=== PATIENT | female | born 1995 | race Two or more races ===

== ENCOUNTER 2016-07-07 06:07 | Emergency (ER) | payer MEDICAID ==
[2016-07-07 06:14] VITALS: RESP 16
[2016-07-07] MEDS ORDERED: DEXAMETHASONE VARIABLE DOSE IVP/PO ONE (06:30)
[2016-07-07] MEDS ORDERED: DEXAMETHASONE 10 MG/ML VIAL ONE (06:31)
[2016-07-07] MEDS ORDERED: ONDANSETRON 4 MG/2 ML VIAL ONE (06:42)
[2016-07-07] MEDS ORDERED: ONDANSETRON 4 MG/2 ML VIAL IVP ONE (06:46)
[2016-07-07] MEDS ORDERED: NS 1,000 ML IV ONE (06:46)
--- NOTE | 2016-07-07 07:08 | EDPHY ---
HPI/HX/ROS/PE/MDM Narrative: Chief complaint: Sore throat HPI: 20-year-old female presenting with several days of worsening sore throat and swelling of the glands in her neck. She does have a history of the same in the past but not for many years when she has strep. Has had some subjective fevers and chills. Has pain with swallowing but is able swallow. No nausea or vomiting. No skin rash. ROS: 10 point Review of Systems is negative except as noted in the HPI. Physical exam: Gen: Awake, Alert, No Distress HEENT: Nose: no rhinorrhea Eyes: PERRLA, EOMI Mouth: Moist mucosa diffuse pharyngeal exudate with erythema. Uvula is midline. There is no significant asymmetrical peritonsillar swelling suggesting abscess Neck: Supple, no JVD, moderate cervical lymphadenopathy Chest: nontender, lungs clear to auscultation Heart: S1, S2 normal, no murmur Abd: Soft, non-tender, no guarding Back: no CVA tenderness, no midline tenderness Ext: no edema, non-tender Skin: no rash Neuro: CN II-XII intact, Sensation grossly intact, Strength 5/5 in bilateral upper and lower extremities - Data Points Laboratory Results: 07/07/16 07/07/16 Unknown 06:30 Monoscreen Pending Group A Strep Screen NEGATIVE (NEGATIVE) Group A Strep DNA Pending Medications Given: Discontinued Medications Dexamethasone Sodium Phosphate (Decadron) 10 mg IVP/PO ONCE ONE Stop: 07/07/16 06:31 Last Admin: 07/07/16 06:46 Dose: 10 mg Sodium Chloride (Ns) 1,000 mls @ 0 mls/hr IV ONCE ONE PRN Reason: Wide Open Stop: 07/07/16 06:47 Last Admin: 07/07/16 06:46 Dose: 1,000 mls Ondansetron HCl (Zofran) 4 mg IVP EDNOW ONE Stop: 07/07/16 06:47 Last Admin: 07/07/16 06:47 Dose: 4 mg General Time Seen by Provider: 07/07/16 06:26 Initial Vital Signs: Initial Vital Signs Temperature (C) 36.9 C 07/07/16 06:11 Heart Rate 101 H 07/07/16 06:11 Respiratory Rate 16 07/07/16 06:11 Blood Pressure 120/78 07/07/16 06:11 O2 Sat (%) 98 07/07/16 06:11 O2 Delivery Mode Room Air Allergies/Adverse Reactions: No Known Allergies Allergy (Verified 07/07/16 06:14) Home Medications: Medication Instructions Recorded Hydrocodone/Acetaminophen 1 - 2 each PO Q4-6PRN PRN #10 07/07/16 [Hydrocodon-Acetaminophen 5-325] tablet Departure - Departure Disposition: Home, Routine, Self-Care Clinical Impression: Acute pharyngitis Condition: Good Instructions: Pharyngitis (ED) Additional Instructions: Follow up with primary care provider in 2-3 days for recheck. Return to the emergency department for worsening swelling, difficulty swallowing , fevers, chills, or any concerns. Follow up with [facility] in [place]. You may take [place] as needed for pain. Alternate with ibuprofen. Referrals: [facility] [Outside] - As per Instructions IN STATE,. [Primary Care Provider] - As per Instructions [facility] [place] [Other] - As per Instructions Prescriptions: Hydrocodone/Acetaminophen [Hydrocodon-Acetaminophen 5-325] 1 - 2 each PO Q4- 6PRN PRN #10 tablet PRN Reason: Pain, Severe
[2016-07-07 07:23] VITALS: BP 112/64; PULSE 93; TEMP 98.2; O2SAT 96
== END 2016-07-07 07:22 | disposition home or self-care (01) ==
DX: J02.9 Acute pharyngitis, unspecified (principal)
CPT/HCPCS: 96374; J2405

== ENCOUNTER 2017-05-19 08:55 | Observation (INO) | payer MEDICAID ==
[2017-05-19] MEDS ORDERED: NS 2,000 ML IV ONE (09:16)
--- NOTE | 2017-05-19 09:19 | EDPHY ---
H & P Stated Complaint: st/fever centeno x 3 days - Personal History LMP (Females 10-55): 15-21 Days Ago Current Tetanus/Diphtheria Vaccine: No - Medical/Surgical History Hx Asthma: No Hx Chronic Respiratory Disease: No Hx Diabetes: No Hx Cardiac Disease: No Hx Renal Disease: No Hx Cirrhosis: No Hx Alcoholism: No Hx HIV/AIDS: No Hx Splenectomy or Spleen Trauma: No Other PMH: DENIES - Social History Smoking Status: Never smoked Time Seen by Provider: 05/19/17 09:12 HPI/ROS: CHIEF COMPLAINT: flu-like symptoms, vomiting HISTORY OF PRESENT ILLNESS: 21-year-old immunocompetent female with no influenza vaccination this season complaining of 3 days of sore throat, nonprogressive non thunderclap holocephalic headache, nonproductive cough with development of intractable vomiting since last evening. Bowel movements normal. Urinary habits normal. No abdominal pain. No chest pain. No nuchal rigidity. No melena or hematochezia. No known sick contacts. No one sick at home. PRIMARY CARE PROVIDER: REVIEW OF SYSTEMS: A ten point review of systems was performed and is negative with the exception of the items mentioned in the HPI PAST MEDICAL & SURGICAL HISTORY: No influenza vaccination this season SOCIAL HISTORY: nonsmoker PHYSICAL EXAM (Prior to examination, patient consented to physical exam, hands were washed and my usual and customary physical exam procedures followed) 1) GENERAL: Well-developed, well-nourished, alert and oriented. Appears to be in no acute distress. Appears nontoxic 2) HEAD: Normocephalic, atraumatic 3) HEENT: Pupils equal, round, reactive to light bilaterally. Sclera anicteric. Nasopharynx, oropharynx, clear, no lesions. Dry mucous membranes. No tonsillar enlargement or exudate. No trismus no drooling. No hot potato voice. Ears bilaterally with normal tympanic membranes. 4) NECK: Full range of motion, no meningeal signs. No adenopathy 5) LUNGS: Clear auscultation bilaterally, no wheezes, no rhonchi, no retractions. 6) HEART: Regular rate and rhythm, no murmur, no heave, no gallop. 7) ABDOMEN: No guarding, no rebound, no focal tenderness, negative McBurney's, negative Paulson's, negative Rovsing's, negative peritoneal sign, 8) MUSCULOSKELETAL: Moving all extremities, no focal areas of tenderness, no obvious trauma. No peripheral edema or discoloration. 9) BACK: No CVA tenderness, no midline vertebral tenderness, no fluctuance, no step-off, no obvious trauma, no visual or palpable abnormality. 10) SKIN: No rash, no petechiae. 11) Psychiatric: Patient is oriented X 3, there is no agitation. DIFFERENTIAL DIAGNOSIS: in no particular include but limited to viral syndrome , influenza, meningitis (Jenae Espinal) Constitutional: Initial Vital Signs Temperature (C) 37.1 C 05/19/17 08:59 Heart Rate 124 H 05/19/17 08:59 Respiratory Rate 20 05/19/17 08:59 Blood Pressure 114/71 05/19/17 08:59 O2 Sat (%) 100 05/19/17 08:59 O2 Delivery Mode Room Air Allergies/Adverse Reactions: No Known Allergies Allergy (Verified 05/19/17 08:58) Home Medications: Medication Instructions Recorded Ibuprofen [Motrin (*)] 200 mg PO DAILY PRN 05/19/17 Medical Decision Making ED Course/Re-evaluation: 9:17 a.m.: Patient has no complaints of abdominal pain, nontender abdomen. She is tachycardic in the 120s with reports of intractable vomiting. Will obtain diagnostic studies including IV hydration, influenza, strep and re- evaluate. Care of patient under supervision of secondary supervising physician Dr Ramesh . Doubt meningitis 10:56 a.m.: Patient has positive pyuria bacteriuria. She will be started on Rocephin and Keflex. 11:15 a.m.: Patient positive influenza. She will be started on Tamiflu as her symptoms some occurring for 1 day. 11:30 a.m.: Patient has been re-evaluated, she has received Tamiflu, Rocephin, 2000 cc of saline remains tachycardic in the mid 130s. I do not think that discharge home is appropriate at this time. Discussed this with Dr. Ramesh in the ER who agrees. Plan will be admission to hospitalist, continued IV hydration. 11:40 a.m.: Consultation with hospitalist, Laina, admit to Dr. Puente (Jenae Espinal) The patient was evaluated and managed by the physician economist research assistant. I have reviewed this chart and I agree with the findings and plan of care as documented , as indicated by my signature. I am the secondary supervising physician. ( Ruth Ramesh) - Data Points Laboratory Results: Laboratory Results 05/19/17 09:24 05/19/17 09:24 Medications Given: Acetaminophen (Tylenol) 650 mg PO Q4HRS PRN PRN Reason: Pain, Mild/Fever, Can Take PO Stop: 11/15/17 13:09 Last Admin: 05/19/17 18:06 Dose: 650 mg Sodium Chloride (Ns) 1,000 mls @ 125 mls/hr IV CONT LYNDSAY Stop: 11/15/17 12:44 Last Admin: 05/19/17 22:13 Dose: 1,000 mls Ondansetron HCl (Zofran Odt) 4 mg PO Q4HRS PRN PRN Reason: Nausea/Vomiting, Use 1st Stop: 11/15/17 13:09 Last Admin: 05/19/17 22:12 Dose: 4 mg Oseltamivir Phosphate (Tamiflu) 75 mg PO BIDMEAL LYNDSAY Stop: 05/24/17 08:01 Last Admin: 05/19/17 18:02 Dose: 75 mg Throat Lozenges (Cepacol Lozenge) 1 ea PO PRN PRN PRN Reason: Sore Throat Stop: 11/15/17 22:03 Last Admin: 05/19/17 22:13 Dose: 1 ea Discontinued Medications Acetaminophen (Tylenol) 1,000 mg PO EDNOW ONE Stop: 05/19/17 10:32 Last Admin: 05/19/17 10:37 Dose: 1,000 mg Sodium Chloride (Ns) 2,000 mls @ 0 mls/hr IV ONCE ONE PRN Reason: Wide Open Stop: 05/19/17 09:17 Last Admin: 05/19/17 10:04 Dose: 2,000 mls Ceftriaxone Sodium/Dextrose (Rocephin 1 Gm (Premix)) 50 mls @ 100 mls/hr IV EDNOW ONE PRN Reason: Protocol Stop: 05/19/17 11:25 Last Admin: 05/19/17 11:29 Dose: 50 mls Ibuprofen (Motrin) 800 mg PO EDNOW ONE Stop: 05/19/17 10:32 Last Admin: 05/19/17 10:38 Dose: 800 mg Oseltamivir Phosphate (Tamiflu) 75 mg PO EDNOW ONE Stop: 05/19/17 11:13 Last Admin: 05/19/17 11:27 Dose: 75 mg Departure - Departure Disposition: [facility] Clinical Impression: Volume depletion, Pyelonephritis, Influenza A Condition: Fair
[2017-05-19 09:30] LABS: % IMMATURE GRANULYOCYTES 0.2 % (0.0-1.1); ABSOLUTE IMMATURE GRANULOCYTES 0.02 10^3/uL (0.00-0.10); ADD DIFF? NO; ADD MORPH? NO; ADD SCAN? NO; ATYPICAL LYMPHOCYTE FLAG 10 (0-99); FRAGMENT RBC FLAG 0 (0-99); HEMATOCRIT 38.7 % (38.0-47.0); HEMOGLOBIN 13.9 g/dL (12.6-16.3); LEFT SHIFT FLG 10 (0-99); LIPEMIA HEMOLYSIS FLAG 90 (0-99); MEAN CELL HEMOGLOBIN 31.3 pg (27.9-34.1); MEAN CELL HEMOGLOBIN CONCENTR. 35.9 g/dL (32.4-36.7); MEAN CELL VOLUME 87.2 fL (81.5-99.8); MEAN PLATELET VOLUME 8.6 fL (8.7-11.7); PLATELET CLUMPS FLAG 20 (0-99); PLATELET COUNT 195 10^3/uL (150-400); RED BLOOD CELL COUNT 4.44 10^6/uL (4.18-5.33); RED CELL DISTRIBUTION WIDTH 12.5 % (11.5-15.2)
[2017-05-19 09:45] LABS: ALANINE AMINOTRANSFERASE 28 IU/L (9-52); ALBUMIN 4.5 g/dL (3.5-5.0); ALKALINE PHOSPHATASE 58 IU/L (38-126); ANION GAP 14 mEq/L (8-16); ASPARTATE AMINOTRANSFERASE 16 IU/L (14-46); BILIRUBIN,TOTAL 0.3 mg/dL (0.1-1.4); BILIRUBIN-CONJUGATED 0.1 mg/dL (0.0-0.5); BILIRUBIN-UNCONJUGATED 0.2 mg/dL (0.0-1.1); CALCIUM 9.3 mg/dL (8.5-10.4); CARBON DIOXIDE 20 mEq/l (22-31); CHLORIDE 106 mEq/L (97-110); CREATININE 0.8 mg/dL (0.6-1.0); GLOMERULAR FILTRATION RATE > 60; GLUCOSE 111 mg/dL (70-100); SODIUM 140 mEq/L (134-144); TOTAL PROTEIN 7.1 g/dL (6.3-8.2)
[2017-05-19 10:19] LABS: COLOR YELLOW; LEUKOCYTE ESTERASE,URINE 2+ (NEGATIVE); NITRITE,URINE NEGATIVE (NEGATIVE)
[2017-05-19] MEDS ORDERED: ACETAMINOPHEN 500 MG TAB PO ONE (10:31)
[2017-05-19] MEDS ORDERED: IBUPROFEN 200 MG TAB PO ONE (10:31)
--- NOTE | 2017-05-19 10:31 | CPEKG ---
Heart Rate: 131 RR Interval: 458 P-R Interval: 132 QRSD Interval: 84 QT Interval: 296 QTC Interval: 437 P Reagan: 69 QRS Reagan: 65 T Wave Reagan: 8 EKG Severity - BORDERLINE ECG - EKG Impression: SINUS TACHYCARDIA EKG Impression: BORDERLINE T ABNORMALITIES, ANTERIOR LEADS Electronically Signed By: Luke Man 22-May-2017 14:23:37
[2017-05-19 10:34] LABS: MUCUS 1+ /lpf (NONE-1+)
[2017-05-19] MEDS ORDERED: OSELTAMIVIR PHOSPHATE 75 MG CAP PO ONE (11:12)
[2017-05-19] MEDS ORDERED: ACETAMINOPHEN 325 MG TAB PO PRN (13:10)
[2017-05-19] MEDS ORDERED: ONDANSETRON 4 MG/2 ML VIAL IVP PRN (13:10)
[2017-05-19] MEDS ORDERED: ONDANSETRON DISINTEGRATING 4 MG TAB PO PRN (13:10)
[2017-05-19] MEDS ORDERED: IBUPROFEN 200 MG TAB PO PRN (13:10)
--- NOTE | 2017-05-19 14:12 | GHP ---
[f rep st] HISTORY AND PHYSICAL DATE OF ADMISSION: 05/19/2017 CHIEF COMPLAINT: Sore throat x3 days. HISTORY OF PRESENT ILLNESS: The patient is a very sweet 21-year-old female with no significant past medical history, who has had a sore throat for approximately 3 days, as well as a headache. She said that she has been unable to sleep due to the pain from the sore throat. She tried ibuprofen but had no relief. In addition, she has been having ongoing fever and chills with a productive cough. Today, she started vomiting and continued to feel poorly. With the encouragement from her mother, she came to the emergency room for further evaluation. She complains of some pain with coughing in the chest area and describes this as feeling more short of breath than usual. She denies any neck pain. She denies any changes in her weight or vision. She denies any changes in her bowel movements. She denies any burning, frequency or urgency with urination. Her main issue today is that she has been unable to keep in adequate intake. PAST MEDICAL HISTORY: None. PAST SURGICAL HISTORY: No surgeries. 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 She is currently not in a relationship. She does not smoke. She does not drink alcohol. FAMILY HISTORY: Both her parents are healthy. ALLERGIES: No known allergies. MEDICATIONS: Not on any medications. REVIEW OF SYSTEMS: A 10-point review of system was performed, was negative other than the pertinent positives in HPI and past medical history. PHYSICAL EXAMINATION: GENERAL: The patient is a 21-year-old female who appears overall to be very healthy. VITAL SIGNS: Blood pressure is 119/68, heart rate is 124, respiratory rate is 18, O2 saturation on room air 100%, temperature is 37 degrees Celsius. EYES: Pupils are equal and reactive. EOMs are intact. No conjunctival injection noted. ENT: Normal. EARS: Hearing intact. MOUTH: Oral airways moist. NECK: Trachea is midline. CARDIOVASCULAR : She is in a regular rate and rhythm. She is tachycardic. No murmurs, rubs, or gallops noted. CHEST/LUNGS: Normal respiratory effort. Clear without wheezing, rales, rhonchi. ABDOMEN: Soft, nontender. SKIN: No rashes or ulcer. MUSCULOSKELETAL: Normal gait. Equal upper and lower extremity strength. PSYCHIATRIC: She is alert and oriented. Normal mood and affect. Normal judgment, insight and memory. DATA REVIEWED: A CBC was performed, which showed a white blood cell count of 9.37, hemoglobin of 13.9, hematocrit of 38.7, platelet count of 195. Chemistry : Sodium is 140, potassium 4, chloride of 106, CO2 of 20, glucose is 111. screen is negative. A urinalysis was performed, which showed trace ketones. She has 2+ leukocyte esterase. She has 5-10 white blood cells and 10- 15 red blood cells. She is positive for influenza A PCR. She has a negative group A strep screen. EKG was seen and evaluated by myself which shows a sinus tachycardia with some borderline T abnormalities in the anterior leads. ASSESSMENT/PLAN: 1. Influenza A: Will treat her with oseltamivir b.i.d. for a total of 10 doses. 2. Dehydration with associated tachycardia: Will continue hydration overnight and reassess in the morning. 3. Pyuria: At this time, will not treat her for infection. She has no signs or symptoms. Will continue close watching. 4. Emesis: I suspect this is secondary from the flu. Will order p.r.n. Zofran. 5. Length of stay: I suspect that she will require less than a 2 midnight stay , which will make her observation status. 6. DVT prophylaxis: Low risk. Will encourage early ambulation. /[id number]/MODL MTDD
[2017-05-19] MEDS: NS 1,000 ML IV SCH ×2 (15:03→22:13)
[2017-05-19] MEDS: OSELTAMIVIR PHOSPHATE 75 MG CAP PO SCH (18:02)
[2017-05-19] MEDS ORDERED: CEPACOL LOZENGE PO PRN (22:04)
[2017-05-20 05:16] LABS: % IMMATURE GRANULYOCYTES 0.5 % (0.0-1.1); ABSOLUTE IMMATURE GRANULOCYTES 0.02 10^3/uL (0.00-0.10); ADD DIFF? NO; ADD MORPH? NO; ADD SCAN? NO; ATYPICAL LYMPHOCYTE FLAG 0 (0-99); FRAGMENT RBC FLAG 0 (0-99); HEMATOCRIT 36.8 % (38.0-47.0); HEMOGLOBIN 12.5 g/dL (12.6-16.3); LEFT SHIFT FLG 10 (0-99); LIPEMIA HEMOLYSIS FLAG 90 (0-99); MEAN CELL HEMOGLOBIN 30.3 pg (27.9-34.1); MEAN CELL VOLUME 89.3 fL (81.5-99.8); PLATELET CLUMPS FLAG 0 (0-99); PLATELET COUNT 164 10^3/uL (150-400); RED BLOOD CELL COUNT 4.12 10^6/uL (4.18-5.33); RED CELL DISTRIBUTION WIDTH 12.8 % (11.5-15.2)
[2017-05-20 05:35] LABS: ALANINE AMINOTRANSFERASE 25 IU/L (9-52); ALBUMIN 3.2 g/dL (3.5-5.0); ALKALINE PHOSPHATASE 43 IU/L (38-126); ANION GAP 12 mEq/L (8-16); ASPARTATE AMINOTRANSFERASE 17 IU/L (14-46); BILIRUBIN,TOTAL 0.1 mg/dL (0.1-1.4); CALCIUM 8.1 mg/dL (8.5-10.4); CARBON DIOXIDE 21 mEq/l (22-31); CHLORIDE 108 mEq/L (97-110); CREATININE 0.6 mg/dL (0.6-1.0); GLOMERULAR FILTRATION RATE > 60; GLUCOSE 93 mg/dL (70-100); MAGNESIUM 1.7 mg/dL (1.6-2.3); SODIUM 141 mEq/L (134-144); TOTAL PROTEIN 5.7 g/dL (6.3-8.2)
[2017-05-20 08:14] VITALS: BP 122/76; PULSE 101; RESP 18; TEMP 99.3; O2SAT 98
[2017-05-20] MEDS ORDERED: IBUPROFEN 600 MG TAB PO PRN (09:00)
[2017-05-20] MEDS: NS 1,000 ML IV SCH (09:30)
[2017-05-20] MEDS: OSELTAMIVIR PHOSPHATE 75 MG CAP PO SCH (09:30)
--- NOTE | 2017-05-20 10:57 | ASMTCMCOM ---
CM Note CM Note Notes: Spoke w/RN, anticipate pt will dc home with support of her parents when medically stable. CM available for any changes. Date Signed: 05/20/2017 10:57 AM Electronically Signed By:Octavia Mistry RN
--- NOTE | 2017-05-20 16:40 | ASDISCHSUM ---
Discharge Information Plan Status:Home with No Needs Medically Cleared to Leave: Discharge Date:05/20/2017 12:10 PM CM D/C Disposition:Home, Routine, Self-Care ADT D/C Disposition:Home, Routine, Self-Care Projected Discharge Date:05/20/2017 12:10 PM Transportation at D/C:Family Discharge Delay Reason: Follow-Up Date:05/20/2017 12:10 PM Discharge Slot: Final Diagnosis: Placement Information Patient Contact Information Contact Name:KHANH Relationship:Mother Address:[address] Work Phone: City:[place] Alternate Phone: State/Zip Code:[place] [address] Email: Financial Information Financial Class: Primary Plan Desc:[employer] Primary Plan Number:[id number] Secondary Plan Desc: Secondary Plan Number: Assessment Information [facility] CM Progress Note CM Note CM Note Notes: Spoke w/RN, anticipate pt will dc home with support of her parents when medically stable. CM available for any changes. Date Signed: 05/20/2017 10:57 AM Electronically Signed By:Octavia Mistry RN Intervention Information
--- NOTE | 2017-05-21 04:24 | GDS ---
[f rep st] DISCHARGE SUMMARY SERVICE: [facility] hospitalists. CONSULTATIONS: None. PROCEDURES: None. HISTORY AND PHYSICAL: Please see previously dictated note by Yulissa Mireles NP. ADMISSION DIAGNOSES: 1. Positive influenza A. 2. Dehydration. 3. Pyuria. DISCHARGE DIAGNOSES: 1. Positive influenza A. 2. Dehydration, resolved. 3. Pyuria. HOSPITAL COURSE: The patient was admitted to the hospital for observation status because of symptomatic dehydration secondary to influenza A infection. She was started on oseltamivir orally. She was given IV fluid hydration overnight, along with p.r.n. nausea medications. In the morning, she felt better, denied further vomiting. She was requesting a regular diet. Tachycardia was much improved, and she was afebrile overnight. She is going to be discharged home to continue Tamiflu with Zofran as needed and to push fluids. Reviewed contagious precautions with her. Suggested that she follow up with her primary care provider at [facility] prior to the end of the week. If at any time she has worsening symptoms, especially if fever returns or she is unable to stay hydrated orally, she should return for re- evaluation. She was noted to have pyuria on initial urine testing, but likely secondary to dehydration. No further testing or evaluation is needed at this time unless becomes symptomatic. DISCHARGE INSTRUCTIONS: She will follow up with [facility] within the next few days, or return sooner here as described above. DISCHARGE MEDICATIONS: Ibuprofen 600 mg every 6 hours as needed 3 tabs of over -the-counter strength 200 mg). Zofran 4 mg as needed. Tamiflu 75 mg twice a day to complete 5 days. /[id number]/MODL MTDD
== END 2017-05-20 12:10 | disposition home or self-care (01) ==
LOC: F3E 12:14
PROVIDERS: ADMIT Family Medicine; ATTEND Family Medicine
DX: J10.1 Influenza due to other identified influenza virus with other respiratory manifestations (principal); E86.0 Dehydration; N39.0 Urinary tract infection, site not specified
CPT/HCPCS: 93005; 96361; 96374; 99285; G0378; J0696

== ENCOUNTER 2017-06-14 21:59 | Emergency (ER) | payer MEDICAID ==
[2017-06-14 22:11] VITALS: RESP 16
--- NOTE | 2017-06-14 22:19 | EDPHY ---
H & P Smoking Status: Never smoked Time Seen by Provider: 06/14/17 22:18 HPI/ROS: Chief complaint. Abdominal pain HPI. 21-year-old female presents emergency department with low abdominal pain for several weeks after having an admission for dehydration, influenza a, urinary tract infection in mid May. Her symptoms really never went completely away as far as her urinary symptoms and then she has had bilateral low abdominal discomfort and pain with urination for the past 1 week. Unknown fever. No vomiting or diarrhea. She does note urinary frequency. Pain is in both lower quadrants and occasionally in both flanks. ROS Constitutional. no fever/chills, no weakness Eyes. no problems with vision ENT. no sore throat, no nasal drainage Cardiovascular. no chest pain Respiratory. no shortness of breath, no cough Abdominal. Low abdominal pain . Urinary frequency MS. no calf pain/swelling, no neck/back pain, no joint pain Skin. no rash Lymph. no swollen glands Neuro. no headache, no dizziness, no difficulty walking or with speech (Hany Madrigal) Past Medical/Surgical History: Kidney infections (Hany Madrigal) Social History: Single, nonsmoker, no alcohol (Hany Madrigal) Physical Exam: General Appearance: Alert well-developed female mild distress vital signs are stable Eyes: Pupils equal and round no pallor or injection. ENT, Mouth: Mucous membranes are moist. Respiratory: There are no retractions, lungs are clear to auscultation. Cardiovascular: Regular rate and rhythm. Gastrointestinal: Abdomen is soft with mild tenderness in both adnexal areas. No tenderness at McBurney's point. Currently no tenderness in either flank. Normal bowel sounds. No masses Neurological: Awake and alert, sensory and motor exams grossly normal. Skin: Warm and dry, no rashes. Musculoskeletal: Neck is supple nontender. Extremities symmetrical, full range of motion. Psychiatric: Patient is oriented X 3, there is no agitation. (Hany Madrigal) Constitutional: Initial Vital Signs Temperature (C) 36.5 C 06/14/17 22:08 Heart Rate 83 06/14/17 22:08 Respiratory Rate 16 06/14/17 22:08 Blood Pressure 138/88 H 06/14/17 22:08 O2 Sat (%) 99 06/14/17 22:08 O2 Delivery Mode Room Air Allergies/Adverse Reactions: No Known Allergies Allergy (Verified 12/10/17 22:11) Home Medications: Medication Instructions Recorded Ibuprofen [Motrin (*)] 600 mg PO Q6HRS PRN tab 05/20/17 Ondansetron Odt [Zofran Odt 4 mg 4 mg PO Q4HRS PRN #10 tab 05/20/17 (*)] Cephalexin [Keflex] 500 mg PO Q6H #28 cap 06/15/17 Phenazopyridine HCl [Pyridium] 200 mg PO TID #15 tab 06/15/17 Medical Decision Making Procedures: IV normal saline. Fentanyl for pain (Hany Madrigal) 0158: I did go and seen [facility] evaluate the patient she is resting comfortably. Abdomen is soft no significant focal area of tenderness. Her initial urinalysis was a dirty catch. 2nd urinalysis was a clean catch but still shows infection. I have sent a urine culture. Additionally I have given the patient IV Rocephin 1 g here in the emergency room. I will give her prescription for Keflex. Additionally she has been given return precautions she understands return emergency room if she develops worsening abdominal pain fever or vomiting. She is comfortable with this plan. Blood work has been reviewed. Abdomen soft. She is not vomiting. She is requesting something to drink. Return precautions given she understands. ( Reji Arnold) - Data Points Laboratory Results: Laboratory Results 06/14/17 23:04 06/14/17 23:04 06/15/17 06/14/17 06/14/17 00:39 23:55 23:04 WBC RBC Hgb Hct MCV MCH MCHC RDW Plt Count MPV Neut % (Auto) Lymph % (Auto) Whitley % (Auto) Eos % (Auto) Baso % (Auto) Nucleat RBC Rel Count Absolute Neuts (auto) Absolute Lymphs (auto) Absolute Monos (auto) Absolute Eos (auto) Absolute Basos (auto) Absolute Nucleated RBC Immature Gran % Immature Gran # Sodium Potassium Chloride Carbon Dioxide Anion Gap BUN Creatinine Estimated GFR Glucose Calcium Beta HCG, Qual NEGATIVE Urine Color PALE YELLOW YELLOW Urine Appearance CLEAR MODERATELY TURBID Urine pH 6.0 6.0 (5.0-7.5) (5.0-7.5) Ur Specific [place] 1.010 1.021 (1.002-1.030) (1.002-1.030) Urine Protein NEGATIVE 1+ H (NEGATIVE) (NEGATIVE) Urine Ketones 1+ H 1+ H (NEGATIVE) (NEGATIVE) Urine Blood NEGATIVE NEGATIVE (NEGATIVE) (NEGATIVE) Urine Nitrate NEGATIVE POSITIVE H (NEGATIVE) (NEGATIVE) Urine Bilirubin NEGATIVE NEGATIVE (NEGATIVE) (NEGATIVE) Urine Urobilinogen NEGATIVE EU EU NEGATIVE EU EU (0.2-1.0) (0.2-1.0) Ur Leukocyte Esterase 1+ H 3+ H (NEGATIVE) (NEGATIVE) Urine RBC 3-5 /hpf H /hpf 25-50 /hpf H /hpf (0-3) (0-3) Urine WBC 25-50 /hpf H /hpf 50-182 /hpf H /hpf (0-3) (0-3) Ur Epithelial Cells TRACE /lpf /lpf 4+ /lpf H /lpf (NONE-1+) (NONE-1+) Urine Bacteria 4+ /hpf H /hpf (NONE SEEN) Urine Mucus TRACE /lpf /lpf 4+ /lpf H /lpf (NONE-1+) (NONE-1+) Urine Glucose NEGATIVE NEGATIVE (NEGATIVE) (NEGATIVE) 06/14/17 06/14/17 23:04 23:04 WBC 6.84 10^3/uL 10^3/uL (3.80-9.50) RBC 4.57 10^6/uL 10^6/uL (4.18-5.33) Hgb 14.0 g/dL g/dL (12.6-16.3) Hct 40.1 % % (38.0-47.0) MCV 87.7 fL fL (81.5-99.8) MCH 30.6 pg pg (27.9-34.1) MCHC 34.9 g/dL g/dL (32.4-36.7) RDW 12.9 % % (11.5-15.2) Plt Count 259 10^3/uL 10^3/uL (150-400) MPV 8.8 fL fL (8.7-11.7) Neut % (Auto) 59.6 % % (39.3-74.2) Lymph % (Auto) 27.5 % % (15.0-45.0) Whitley % (Auto) 11.5 % % (4.5-13.0) Eos % (Auto) 1.0 % % (0.6-7.6) Baso % (Auto) 0.3 % % (0.3-1.7) Nucleat RBC Rel Count 0.0 % % (0.0-0.2) Absolute Neuts (auto) 4.07 10^3/uL 10^3/uL (1.70-6.50) Absolute Lymphs (auto) 1.88 10^3/uL 10^3/uL (1.00-3.00) Absolute Monos (auto) 0.79 10^3/uL 10^3/uL (0.30-0.80) Absolute Eos (auto) 0.07 10^3/uL 10^3/uL (0.03-0.40) Absolute Basos (auto) 0.02 10^3/uL 10^3/uL (0.02-0.10) Absolute Nucleated RBC 0.00 10^3/uL 10^3/uL (0-0.01) Immature Gran % 0.1 % % (0.0-1.1) Immature Gran # 0.01 10^3/uL 10^3/uL (0.00-0.10) Sodium 143 mEq/L mEq/L (134-144) Potassium 4.0 mEq/L mEq/L (3.5-5.2) Chloride 105 mEq/L mEq/L (97-110) Carbon Dioxide 27 mEq/l mEq/l (22-31) Anion Gap 11 mEq/L mEq/L (8-16) BUN 8 mg/dL mg/dL (7-23) Creatinine 0.7 mg/dL mg/dL (0.6-1.0) Estimated GFR > 60 Glucose 88 mg/dL mg/dL (70-100) Calcium 10.0 mg/dL mg/dL (8.5-10.4) Beta HCG, Qual Urine Color Urine Appearance Urine pH Ur Specific [place] Urine Protein Urine Ketones Urine Blood Urine Nitrate Urine Bilirubin Urine Urobilinogen Ur Leukocyte Esterase Urine RBC Urine WBC Ur Epithelial Cells Urine Bacteria Urine Mucus Urine Glucose Medications Given: Discontinued Medications Fentanyl (Sublimaze) 50 mcg IVP EDNOW ONE Stop: 06/14/17 22:31 Last Admin: 06/14/17 23:05 Dose: 50 mcg Sodium Chloride (Ns) 1,000 mls @ 0 mls/hr IV EDNOW ONE; Wide Open PRN Reason: Protocol Stop: 06/14/17 22:31 Last Admin: 06/14/17 23:04 Dose: 1,000 mls Departure - Departure Disposition: Home, Routine, Self-Care Clinical Impression: Urinary tract infection Qualifiers: Urinary tract infection type: acute cystitis Hematuria presence: with hematuria Qualified Code(s): N30.01 - Acute cystitis with hematuria Condition: Good Instructions: [facility] Patient Education, Infection Prevention, Urinary Tract Infection in Women (ED) Additional Instructions: 1. Make sure to drink lots of fluids stay well-hydrated. 2. Antibiotics as prescribed. 3. Return to the emergency room if develops worsening abdominal pain fever or vomiting. Referrals: Shlomo Gasca MD [Primary Care Provider] - As per Instructions Prescriptions: Cephalexin [Keflex] 500 mg PO Q6H #28 cap Phenazopyridine HCl [Pyridium] 200 mg PO TID #15 tab
[2017-06-14] MEDS ORDERED: NS 1,000 ML IV ONE (22:30)
[2017-06-14] MEDS ORDERED: fentaNYL 100 MCG/2 ML INJ IVP ONE (22:30)
[2017-06-14 23:12] LABS: % IMMATURE GRANULYOCYTES 0.1 % (0.0-1.1); ABSOLUTE IMMATURE GRANULOCYTES 0.01 10^3/uL (0.00-0.10); ADD DIFF? NO; ADD MORPH? NO; ADD SCAN? NO; ATYPICAL LYMPHOCYTE FLAG 20 (0-99); FRAGMENT RBC FLAG 0 (0-99); HEMATOCRIT 40.1 % (38.0-47.0); LEFT SHIFT FLG 0 (0-99); LIPEMIA HEMOLYSIS FLAG 90 (0-99); MEAN CELL HEMOGLOBIN 30.6 pg (27.9-34.1); MEAN CELL HEMOGLOBIN CONCENTR. 34.9 g/dL (32.4-36.7); MEAN CELL VOLUME 87.7 fL (81.5-99.8); MEAN PLATELET VOLUME 8.8 fL (8.7-11.7); PLATELET CLUMPS FLAG 10 (0-99); PLATELET COUNT 259 10^3/uL (150-400); RED BLOOD CELL COUNT 4.57 10^6/uL (4.18-5.33); RED CELL DISTRIBUTION WIDTH 12.9 % (11.5-15.2)
[2017-06-14 23:29] LABS: ANION GAP 11 mEq/L (8-16); CARBON DIOXIDE 27 mEq/l (22-31); CHLORIDE 105 mEq/L (97-110); CREATININE 0.7 mg/dL (0.6-1.0); GLOMERULAR FILTRATION RATE > 60; GLUCOSE 88 mg/dL (70-100); SODIUM 143 mEq/L (134-144)
[2017-06-15 00:10] LABS: COLOR YELLOW; LEUKOCYTE ESTERASE,URINE 3+ (NEGATIVE); NITRITE,URINE POSITIVE (NEGATIVE)
[2017-06-15 00:22] LABS: BACTERIA 4+ /hpf (NONE SEEN); MUCUS 4+ /lpf (NONE-1+); RBC,URINE 25-50 /hpf (0-3); WBC,URINE 50-182 /hpf (0-3)
[2017-06-15 00:50] LABS: COLOR PALE YELLOW; LEUKOCYTE ESTERASE,URINE 1+ (NEGATIVE); NITRITE,URINE NEGATIVE (NEGATIVE)
[2017-06-15 01:30] LABS: MUCUS TRACE /lpf (NONE-1+); WBC,URINE 25-50 /hpf (0-3)
[2017-06-15] MEDS ORDERED: HYDROmorphONE/DILAUDID 1 MG/ML INJ IVP ONE (01:58)
[2017-06-15] MEDS ORDERED: CEFAZOLIN 1 GM/DEXTROSE/50 ML BAG IV ONE (02:11)
[2017-06-15 02:38] VITALS: BP 124/83; PULSE 85; TEMP 97.9; O2SAT 97
== END 2017-06-15 02:55 | disposition home or self-care (01) ==
DX: N30.01 Acute cystitis with hematuria (principal); E86.9 Volume depletion, unspecified; B96.20 Unspecified Escherichia coli [E. coli] as the cause of diseases classified elsewhere
CPT/HCPCS: 96365; J0690; J0696; J1170; J3010

== ENCOUNTER 2017-09-14 14:52 | Emergency (ER) | payer MEDICAID ==
[2017-09-14 15:17] VITALS: BP 112/69; PULSE 107; RESP 18; TEMP 98.8; O2SAT 97
[2017-09-14] MEDS ORDERED: CEPHALEXIN 500 MG CAP PO ONE (16:22)
--- NOTE | 2017-09-14 16:22 | EDPHY ---
H & P Time Seen by Provider: 09/14/17 16:17 HPI/ROS: CHIEF COMPLAINT: Abdominal/back pain HISTORY OF PRESENT ILLNESS: This patient is a 22 year old female complaining of dysuria and back pain. Onset of dysuria yesterday, associated with moderate lower abd and low back cramping. The cramping is intermittent and occurs before/during urination. Earlier today in the shower, she became lightheaded and vomited once. She has been able to keep fluids down since then and denies any current nausea. Also has a mild WIN. Her last menstrual period was two weeks ago, and she denies any chance of . No fever, chest pain, shortness of breath, diarrhea, or other associated symptoms. REVIEW OF SYSTEMS: A 10 point review of systems was performed and is negative with the exception of the elements mentioned in the history of present illness. Past Medical/Surgical History: UTI/pyelonephritis Social History: Mother at bedside. Nonsmoker. Single. Smoking Status: Never smoked Physical Exam: General Appearance: Alert, pleasant, nontoxic Eyes: Pupils equal and round, no conjunctival pallor ENT, Mouth: Mucous membranes moist Neck: Normal inspection Respiratory: Lungs are clear to auscultation Cardiovascular: Regular rate and rhythm Gastrointestinal: Suprapubic tenderness. Abdomen is soft. Back: no CVAT Neurological: A&O, nonfocal exam Skin: Warm and dry Extremities: normal inspection Psychiatric: Mood and affect normal Constitutional: Initial Vital Signs Temperature (C) 37.1 C 09/14/17 15:08 Heart Rate 107 H 09/14/17 15:08 Respiratory Rate 18 09/14/17 15:08 Blood Pressure 112/69 09/14/17 15:08 O2 Sat (%) 97 09/14/17 15:08 O2 Delivery Mode Room Air Allergies/Adverse Reactions: No Known Allergies Allergy (Verified 09/14/17 15:07) Home Medications: Medication Instructions Recorded Cephalexin [Keflex (*)] 500 mg PO TID #21 cap 09/14/17 Medical Decision Making ED Course/Re-evaluation: 22 y/o female presents with two day history of dysuria, abdominal pain, and back pain. Suprapubic tenderness on exam. Plan for UA. UA positive for UTI. Keflex 500mg orally given. Plan to discharge home in good condition with prescription for Keflex. Urine culture pending. Follow up and return precautions discussed. The patient is comfortable with this plan. Differential Diagnosis: includes though not limited to cystitis, pyelonephritis, appy, ovarian cyst, ectopic - Data Points Microbiology Results: MICROBIOLOGY 09/14/17 15:10 Urine,Clean Catch Urine Culture - Final Escherichia Coli Medications Given: Discontinued Medications Cephalexin HCl (Keflex) 500 mg PO EDNOW ONE PRN Reason: Protocol Stop: 09/14/17 16:23 Last Admin: 09/14/17 16:34 Dose: 500 mg Departure - Departure Disposition: Home, Routine, Self-Care Clinical Impression: Urinary tract infection Qualifiers: Urinary tract infection type: acute cystitis Hematuria presence: without hematuria Qualified Code(s): N30.00 - Acute cystitis without hematuria Condition: Good Instructions: Cephalexin (By mouth), Urinary Tract Infection in Women (ED) Additional Instructions: 1. Take Keflex as prescribed. 2. Follow up with your primary care provider in 2-3 days. 3. Return to the Emergency Department for fever, persistent vomiting, worsening pain, or failure to improve within 72 hours, or other worsening of condition. 4. It is possible that the bacteria causing your infection is resistant to the antibiotic we've placed you on. We have sent a urine for culture, if this comes back with a resistant bacteria, we will call you at the number you provided to us. Referrals: Shlomo Gasca MD [Primary Care Provider] - 3-4 days, if not improved Prescriptions: Cephalexin [Keflex (*)] 500 mg PO TID #21 cap Report Scribed for: Hui Bates Report Scribed by: Kayla Mayfield Date of Report: 09/14/17 Time of Report: 16:22 Physician Review and Approval Statement: 09/14/17 16:22 Portions of this note were transcribed by a medical equipment technician. I personally performed a history, physical exam, medical decision making, and confirmed accuracy of information the transcribed note.
== END 2017-09-14 16:35 | disposition home or self-care (01) ==
DX: N30.00 Acute cystitis without hematuria (principal); B96.20 Unspecified Escherichia coli [E. coli] as the cause of diseases classified elsewhere

== ENCOUNTER 2017-10-21 18:24 | Inpatient (IN) | payer MEDICAID ==
--- NOTE | 2017-10-21 19:23 | EDPHY ---
H & P Stated Complaint: UTI symptoms and low abdo and back pain for 3 days. Source: Patient Exam Limitations: No limitations - Personal History LMP (Females 10-55): Over 28 Days Ago Current Tetanus Diphtheria and Acellular Pertussis (TDAP): Unsure - Medical/Surgical History Hx Asthma: No Hx Chronic Respiratory Disease: No Hx Diabetes: No Hx Cardiac Disease: No Hx Renal Disease: No Hx Cirrhosis: No Hx Alcoholism: No Hx HIV/AIDS: No Hx Splenectomy or Spleen Trauma: No Other PMH: Kidney Infections, cyst removed from cheek. - Social History Smoking Status: Never smoked Time Seen by Provider: 10/21/17 19:22 HPI/ROS: HPI: This is a 22-year-old female who presents with Chief Complaint: UTI symptoms and low abdo and back pain for 3 days. Location: Quality: Burning with urination Duration: 3 days Signs and Symptoms: no fever, no nausea, no vomiting, no hematemesis, no blood in stool, no abdominal bloating, no diarrhea, + bilateral lower back pain, + burning with urination, no hematuria, no vaginal bleeding/discharge, no indigestion, no chest pain, no shortness of breath Timing: Intermittent episodes Severity: [id number] Context: Patient reports that she is generally healthy, currently sexually active, presents with complaints of burning with urination and hesitancy for the last 3 days. She reports that she also has bilateral dull aching low back pain that is nonradiating in nature. Denies any fever/nausea/vomiting/ diarrhea. LMP over 28 days ago. No history of kidney stones or ovarian cyst. Eating and drinking normally. Modifying Factors: None Comment: ROS: see HPI Constitutional: No fever, no chills, no weight loss Eyes: No blurred vision Respiratory: No shortness of breath, no cough Cardiovascular: No chest pain, no palpitations Gastrointestinal: No nausea, no vomiting, no diarrhea, no hematemesis, no blood in stool Genitourinary: + dysuria, no blood in urine Extremities: No myalgias, no edema Neurologic: No weakness, no numbness Skin: No rashes, no petechiae Hematologic: No bruising, no bleeding MEDICAL/SURGICAL/SOCIAL HISTORY: Medical history: Generally healthy. Does not take any regular medications. Surgical history: Denies Social history: Family history noncontributory. CONSTITUTIONAL: Extremely well-appearing young adult female, awake and alert, no obvious distress HEENT: Atraumatic and normocephalic, PERRL, EOMI. Nares patent; no rhinorrhea; no nasal mucosal edema. Tympanic membranes clear. Oropharynx clear, no exudate and moist pink mucosa. Airway patent. No lymphadenopathy. No meningismus. Cardiovascular: Normal S1/S2, tachycardia, regular rhythm, without murmur rub or gallop. PULMONARY/CHEST: Symmetrical and nontender. Clear to auscultation bilaterally. Good air movement. No accessory muscle usage. ABDOMEN: Soft, nondistended, nontender, no rebound, no guarding, no peritoneal signs, no masses or organomegaly. No CVAT. EXTREMITIES: 2/2 pulses, strength 5/5, no deformities, no clubbing, no cyanosis or edema. NEUROLOGICAL: no focal neuro deficits. GCS 15. SKIN: Warm and dry, no erythema. no rash. Good capillary refill. (April Hussein) Constitutional: Initial Vital Signs Temperature (C) 38 C 10/21/17 18:45 Heart Rate 134 H 10/21/17 18:45 Respiratory Rate 18 10/21/17 18:45 Blood Pressure 114/74 10/21/17 18:45 O2 Sat (%) 100 10/21/17 18:45 O2 Delivery Mode Room Air Allergies/Adverse Reactions: No Known Allergies Allergy (Verified 09/14/17 15:07) Home Medications: Medication Instructions Recorded NK [No Known Home Meds] 10/21/17 Medical Decision Making - Diagnostics Imaging Results: Imaging Impressions Abdomen CT 10/21/17 21:10 Impression: 1. Findings consistent with an upper pole right pyelonephritis. 2. Mild urinary bladder wall thickening, suggestive of a mild concurrent cystitis. 3. Bilateral ovarian follicles with a small amount of free fluid in the pelvic cul-de-sac. 4. Normal visualized portions of the appendix. Findings were discussed with April Hussein PA-C at 22:58, on 10/21/2017. ED Course/Re-evaluation: Vital signs reviewed upon arrival in show tachycardia but no fever. Given 2 L normal saline, IV Toradol Labs and urinalysis ordered. Doubt female etiology. Abdomen soft and nontender. Doubt surgical abdomen. 1954: Labs reviewed; leukocytosis of 14 K with left shift noted; no lactic acidosis. No signs of anemia/OJLLY/elevated LFTs/electrolyte imbalance. urinalysis shows signs of infection; send for urine cx; IV Rocephin given after 3 liters of fluid; HR from 130-140s to 110s. 2229: Reassessed patient. Complaining of dull frontal headache. Requesting Tylenol. Upon speaking with patient regarding results and urinary tract infection, heart rate jumped up to 140s. repeat abdominal exam soft and nontender. Notified by nursing that patient has now spiked a fever. Called by radiologist who advised that CT abdomen pelvis scan shows normal appendix, no stone, upper pole of right kidney consistent with pyelonephritis; 2299: ED decision to consult for admission. Spoke with Hospitalist, Dr. Oropeza, who kindly agrees to admit patient for further care. (April Hussein) Differential Diagnosis: Differential diagnosis includes but is not limited to lower urinary tract infection, pyelonephritis, sepsis, bacterial vaginosis, . (April Hussein) Other Provider: Independent physician evaluation: I evaluated and participated in the management of the patient. I also evaluated the patient independently. My co-signature indicates that I have reviewed this chart and I agree with the findings and plan of care as documented. My personal H&P findings include: Patient presents to the ED with subjective fever, chills in the setting of recent dysuria and mild low back pain. The patient does have a history of frequent urinary tract infections. Physical examination General Appearance: Alert, mild discomfort Eyes: Pupils equal and round no pallor or injection ENT, Mouth: Mucous membranes moist Respiratory: There are no retractions, lungs are clear to auscultation Cardiovascular: Tachycardic Gastrointestinal: Minimal lower abdominal tenderness Neurological: 5/5 strength all 4 extremities Skin: Warm and dry, no rashes Musculoskeletal: Neck is supple nontender Extremities: symmetrical, full range of motion Psychiatric: Patient is oriented X 3, there is no agitation ED course: Patient presents to the ED with several days of urinary symptoms, tachycardia, leukocytosis and pyuria. Despite IV fluids and IV antibiotics the patient continues to be tachycardic and is now febrile at 38.0 degrees at 11:00 p.m.. The patient's venous lactate is noted to be normal. The patient will require admission to the hospital in the setting of her ongoing tachycardia. Consultation is made with the hospitalist service. The patient will be admitted by Dr. Orpoeza. (Gerhard Ho) - Data Points Laboratory Results: Laboratory Results 10/21/17 19:40 10/21/17 19:40 10/21/17 10/21/17 10/21/17 20:25 19:40 19:40 WBC RBC Hgb Hct MCV MCH MCHC RDW Plt Count MPV Neut % (Auto) Lymph % (Auto) [place] % (Auto) Eos % (Auto) Baso % (Auto) Nucleat RBC Rel Count Absolute Neuts (auto) Absolute Lymphs (auto) Absolute Monos (auto) Absolute Eos (auto) Absolute Basos (auto) Absolute Nucleated RBC Immature Gran % Immature Gran # VBG Lactic Acid 0.9 mmol/L mmol/L (0.7-2.1) Sodium 140 mEq/L mEq/L (135-145) Potassium 3.7 mEq/L mEq/L (3.5-5.2) Chloride 105 mEq/L mEq/L (97-110) Carbon Dioxide 23 mEq/l mEq/l (22-31) Anion Gap 12 mEq/L mEq/L (8-16) BUN 12 mg/dL mg/dL (7-23) Creatinine 0.7 mg/dL mg/dL (0.6-1.0) Estimated GFR > 60 Glucose 100 mg/dL mg/dL (70-100) Calcium 9.5 mg/dL mg/dL (8.5-10.4) Total Bilirubin 0.6 mg/dL mg/dL (0.1-1.4) Conjugated Bilirubin 0.2 mg/dL mg/dL (0.0-0.5) Unconjugated Bilirubin 0.4 mg/dL mg/dL (0.0-1.1) AST 15 IU/L IU/L (14-46) ALT 17 IU/L IU/L (9-52) Alkaline Phosphatase 58 IU/L IU/L (38-126) Total Protein 7.4 g/dL g/dL (6.3-8.2) Albumin 4.5 g/dL g/dL (3.5-5.0) Beta HCG, Qual NEGATIVE Urine Color Urine Appearance Urine pH Ur Specific [place] Urine Protein Urine Ketones Urine Blood Urine Nitrate Urine Bilirubin Urine Urobilinogen Ur Leukocyte Esterase Urine RBC Urine WBC Ur Epithelial Cells Urine Bacteria Urine Mucus Urine Glucose 04/18/18 04/18/18 19:40 18:50 WBC 14.30 10^3/uL H 10^3/uL (3.80-9.50) RBC 4.53 10^6/uL 10^6/uL (4.18-5.33) Hgb 13.9 g/dL g/dL (12.6-16.3) Hct 39.8 % % (38.0-47.0) MCV 87.9 fL fL (81.5-99.8) MCH 30.7 pg pg (27.9-34.1) MCHC 34.9 g/dL g/dL (32.4-36.7) RDW 13.3 % % (11.5-15.2) Plt Count 234 10^3/uL 10^3/uL (150-400) MPV 8.8 fL fL (8.7-11.7) Neut % (Auto) 87.1 % H % (39.3-74.2) Lymph % (Auto) 5.0 % L % (15.0-45.0) [place] % (Auto) 7.2 % % (4.5-13.0) Eos % (Auto) 0.1 % L % (0.6-7.6) Baso % (Auto) 0.2 % L % (0.3-1.7) Nucleat RBC Rel Count 0.0 % % (0.0-0.2) Absolute Neuts (auto) 12.45 10^3/uL H 10^3/uL (1.70-6.50) Absolute Lymphs (auto) 0.72 10^3/uL L 10^3/uL (1.00-3.00) Absolute Monos (auto) 1.03 10^3/uL H 10^3/uL (0.30-0.80) Absolute Eos (auto) 0.01 10^3/uL L 10^3/uL (0.03-0.40) Absolute Basos (auto) 0.03 10^3/uL 10^3/uL (0.02-0.10) Absolute Nucleated RBC 0.00 10^3/uL 10^3/uL (0-0.01) Immature Gran % 0.4 % % (0.0-1.1) Immature Gran # 0.06 10^3/uL 10^3/uL (0.00-0.10) VBG Lactic Acid Sodium Potassium Chloride Carbon Dioxide Anion Gap BUN Creatinine Estimated GFR Glucose Calcium Total Bilirubin Conjugated Bilirubin Unconjugated Bilirubin AST ALT Alkaline Phosphatase Total Protein Albumin Beta HCG, Qual Urine Color YELLOW Urine Appearance MODERATELY TURBID Urine pH 7.0 (5.0-7.5) Ur Specific [place] 1.023 (1.002-1.030) Urine Protein NEGATIVE (NEGATIVE) Urine Ketones NEGATIVE (NEGATIVE) Urine Blood NEGATIVE (NEGATIVE) Urine Nitrate POSITIVE H (NEGATIVE) Urine Bilirubin NEGATIVE (NEGATIVE) Urine Urobilinogen NEGATIVE EU EU (0.2-1.0) Ur Leukocyte Esterase TRACE H (NEGATIVE) Urine RBC 1-3 /hpf /hpf (0-3) Urine WBC 15-25 /hpf H /hpf (0-3) Ur Epithelial Cells TRACE /lpf /lpf (NONE-1+) Urine Bacteria 2+ /hpf H /hpf (NONE SEEN) Urine Mucus 1+ /lpf /lpf (NONE-1+) Urine Glucose NEGATIVE (NEGATIVE) Medications Given: Discontinued Medications Acetaminophen (Tylenol) 1,000 mg PO EDNOW ONE Stop: 10/21/17 22:34 Last Admin: 10/21/17 22:45 Dose: 1,000 mg Sodium Chloride (Ns) 1,000 mls @ 0 mls/hr IV ONCE ONE; Wide Open PRN Reason: Protocol Stop: 10/21/17 19:30 Last Admin: 10/21/17 19:38 Dose: 1,000 mls Sodium Chloride (Ns) 1,000 mls @ 0 mls/hr IV EDNOW ONE; Wide Open PRN Reason: Protocol Stop: 10/21/17 20:16 Last Admin: 10/21/17 20:25 Dose: 1,000 mls Ceftriaxone Sodium 2 gm/ (Sterile Water) 20 mls @ 300 mls/hr IV EDNOW ONE PRN Reason: Protocol Stop: 10/21/17 20:21 Last Admin: 10/21/17 21:18 Dose: 20 mls Sodium Chloride (Ns) 1,000 mls @ 0 mls/hr IV EDNOW ONE; Wide Open PRN Reason: Protocol Stop: 10/21/17 20:57 Last Admin: 10/21/17 21:18 Dose: 1,000 mls Ketorolac Tromethamine (Toradol) 30 mg IVP EDNOW ONE Stop: 10/21/17 19:30 Last Admin: 10/21/17 19:43 Dose: 30 mg Departure - Departure Disposition: [facility] Inpatient Acute Clinical Impression: Pyelonephritis, Sinus tachycardia seen on campus ambassador Condition: Fair
[2017-10-21] MEDS ORDERED: KETOROLAC 30 MG/1 ML SDV IVP ONE (19:29)
[2017-10-21] MEDS ORDERED: NS 1,000 ML IV ONE ×3 (19:29→20:56)
[2017-10-21 19:54] LABS: PLATELET COUNT 234 10^3/uL (150-400)
[2017-10-21] MEDS ORDERED: cefTRIAXone 2 GM in STERILE WATER INJ 20 ML IV ONE (20:18)
[2017-10-21] MEDS ORDERED: IOPAMIDOL (ISOVUE-300) 100 ML BTL ONE (21:14)
[2017-10-21] MEDS ORDERED: cefTRIAXone 1 GM/DEXTROSE 1 GM/50 ML BAG IV ONE (21:16)
[2017-10-21] MEDS ORDERED: ACETAMINOPHEN 500 MG TAB PO ONE (22:33)
[2017-10-21] MEDS ORDERED: HYDROmorphONE/DILAUDID 2 MG/ML INJ IVP PRN (23:33)
[2017-10-21] MEDS ORDERED: LORazepam 0.5 MG TAB PO PRN (23:33)
[2017-10-21] MEDS ORDERED: HYDROCODONE/APAP 5/325 TAB PO PRN (23:33)
[2017-10-22] MEDS: NS 1,000 ML IV SCH ×2 (01:10→10:21)
[2017-10-22] MEDS: ACETAMINOPHEN 325 MG TAB PO PRN ×3 (04:14→17:35)
[2017-10-22] MEDS: ONDANSETRON 4 MG/2 ML VIAL IVP PRN ×2 (04:32→09:30)
[2017-10-22 06:56] LABS: PLATELET COUNT 193 10^3/uL (150-400)
[2017-10-22] MEDS: ENOXAPARIN 40 MG/0.4 ML SYR SC SCH (09:29)
--- NOTE | 2017-10-22 10:15 | GHP ---
[f rep st] HISTORY AND PHYSICAL DATE OF ADMISSION: 10/21/2017 HISTORY OF PRESENT ILLNESS: The patient is a pleasant 22-year-old female with a history of UTI, who presents with malaise. She initially started to feel poorly about 5 days. Three days prior, she dev eloped urinary urgency and frequency. She did not seek care. For that, her mother made her seek car e last evening, where she was noted to be febrile and tachycardic on presentation. The patient had some vomiting after taking Tylenol. She has not been short of breath. She has not h ad vaginal discharge. She has not had any hematemesis or coffee-ground emesis. She has not been fidelina rt of breath or coughing up any productive sputum. REVIEW OF SYSTEMS: Complete 10-point review of systems conducted and negative except as noted in the HPI. PAST MEDICAL HISTORY: UTI. HOME MEDICATIONS: None. ALLERGIES: None. SOCIAL HISTORY: No tobacco. No alcohol. Lives in [place]. Works locally. Boyfriend and mother at the bedside. FAMILY HISTORY: Notable for diabetes. PHYSICAL EXAMINATION: VITAL SIGNS: Temp 38, blood pressure 114/74, pulse 134 (now 101), breathing 2 0 times a minute, 97% on room air. GENERAL: No acute distress. Sclerae anicteric. Oropharynx reilly r. Mucous membranes moist. NECK: Supple without lymphadenopathy or JVD. LUNGS: Clear to ausculta tion bilaterally. HEART: S1, S2. Tachycardic. ABDOMEN: Soft. There is some tenderness without r ebound or guarding or distention in the abdomen. LOWER EXTREMITIES: Without edema. Calves nontende r. SKIN: Without rash. NEUROLOGIC: Nonfocal. LABORATORY DATA: White count 13.7, hematocrit 35, platelets [id number]. Venous lactate 0.9, which is n ormal value. Sodium 140, potassium 3.7, chloride 105, bicarb 23, BUN 12, creatinine 0.7, glucose 100 . LFTs normal. Beta hCG is negative. Urinalysis shows 15-[address] images reviewed and interpreted by me showed pyelonephritis of the right upper pole of t he kidney, as well as urinary bladder wall thickening. I have discussed the case with Dr. Maren Edouard in, who managed the patient overnight. ASSESSMENT/PLAN: A 22-year-old female presents with sepsis and pyelonephritis. 1. Sepsis, as evidenced by tachycardia, fever, and source of infection. 2. Pyelonephritis. This is secondary to untreated urinary tract infection. She has been started on ceftriaxone, which I will continue. 3. Tachycardia. This is the result of infection in a young healthy woman. She is euvolemic. She h as normal lactate suggesting that she has normal perfusion of her body. Will continue supportive IV fluids. 4. Fever. Supportive management with Tylenol and p.r.n. pain medication. 5. Prophylaxis: Enoxaparin. DISPOSITION: Inpatient status. /[id number]/MODL
--- NOTE | 2017-10-22 11:21 | PDMN ---
Medical Necessity Medical necessity: Pt meets IP criteria per MD; est los >2 mn for eval/tx of sepsis & pyelonephritis secondary to UTI; admit for further monitoring, IV abx & IVFs; per H&P & order 10/22/17
[2017-10-22] MEDS: KETOROLAC 15 MG/1 ML SDV IVP PRN (18:27)
[2017-10-23] MEDS: ACETAMINOPHEN 325 MG TAB PO PRN ×2 (00:58→12:45)
[2017-10-23] MEDS: KETOROLAC 15 MG/1 ML SDV IVP PRN (02:08)
[2017-10-23] MEDS: NS 1,000 ML IV SCH (08:52)
[2017-10-23] MEDS: ENOXAPARIN 40 MG/0.4 ML SYR SC SCH (08:53)
[2017-10-23 12:38] VITALS: BP 115/80
--- NOTE | 2017-10-23 13:01 | HOSPPROG ---
Hospitalist Progress Note Assessment/Plan: 22 yo F w pyelonephritis blood cx neg symptomatically improved home today > 30 minutes see dc summary Subjective: low grade temps overnight Objective: Vital Signs Temp Pulse Resp BP Pulse Ox 36.9 C 113 H 18 115/80 92 10/23/17 12:37 10/23/17 12:37 10/23/17 12:37 10/23/17 12:37 10/23/17 12:37 Laboratory Results 10/22/17 06:17 10/22/17 06:17 10/22/17 10/23/17 10/24/17 05:59 05:59 05:59 Intake Total 3975 750 Output Total 1400 Balance 3975 -650 - Physical Exam Constitutional: no apparent distress, appears nourished Eyes: PERRL, anicteric sclera Ears, Nose, Mouth, Throat: moist mucous membranes, hearing normal Cardiovascular: no murmur, rub, or gallop, tachycardia Respiratory: no respiratory distress, no rales or rhonchi Gastrointestinal: normoactive bowel sounds, soft, non-tender abdomen Genitourinary: no bladder fullness, No cruz in urethra Skin: warm, normal color Musculoskeletal: full muscle strength, no muscle tenderness Neurologic: AAOx3 Psychiatric: interacting appropriately ICD10 Worksheet Patient Problems: Problems Problem Status Onset Pyelonephritis Acute Sinus tachycardia seen on nurse monitoring Acute Acute pharyngitis Acute Influenza A Acute Urinary tract infection Acute Volume depletion Acute
--- NOTE | 2017-10-23 13:21 | GDS ---
[f rep st] DISCHARGE SUMMARY DISCHARGE DIAGNOSIS: Pyelonephritis. HOSPITAL COURSE: Please see admission history and physical by Dr. Charles Reeves. The patient prese nted with malaise times a few days and urinary symptoms of a few days. She has a positive urinalysis . Blood cultures were not drawn. She was febrile. She had back pain. The urine culture grew out p ansensitive E coli. The patient is discharged home to complete a course of Keflex. She was advised she may have fevers for an additional 48 hours, but if she had fevers after 96 hours to return to the hospital. /[id number]/MODL
--- NOTE | 2017-10-27 11:11 | PQFORM ---
PHYSICIAN QUERY FORM Needs Your Response This query form is being sent to you to assure this patient record is coded properly. Please respond to the question below: MENTAL HEALTH ORDERLY QUESTION: Dr. Reeves, On your history and physical exam it is documented that this patient had sepsis from her pyelonephritis on admission evidenced by tachycardia and fever. Can this diagnosis be added to the discharge summary? X__ Yes No Unable to determine Other Thank you for clarifying, MATTI Sinclair HIM Coding INSTRUCTIONS FOR RESPONSE: Answer question by clicking on the "Edit Document" button. Move cursor to area below the stars. When complete, hit "Save." Click on the "Sign" button, then click "Sign" again. Type in your PIN and hit "Enter." MTDD
== END 2017-10-23 15:15 | disposition home or self-care (01) | DRG 720 ==
LOC: FOB 10-22 00:30
PROVIDERS: ADMIT Family Medicine; ATTEND Internal Medicine
DX: A41.9 Sepsis, unspecified organism (principal); N12 Tubulo-interstitial nephritis, not specified as acute or chronic; B96.20 Unspecified Escherichia coli [E. coli] as the cause of diseases classified elsewhere
CPT/HCPCS: 96374; J0696; J1650; J1885; J2405; Q9967

== ENCOUNTER 2018-06-25 18:25 | Emergency (ER) | payer SELFPAY ==
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
[2018-06-26 01:32] VITALS: BP 127/67
== END 2018-06-25 19:58 | disposition home or self-care (01) ==
DX: F07.81 Postconcussional syndrome (principal); S09.90XD Unspecified injury of head, subsequent encounter; W01.198D Fall on same level from slipping, tripping and stumbling with subsequent striking against other object, subsequent encounter; Z87.442 Personal history of urinary calculi

== ENCOUNTER 2018-09-26 04:01 | Emergency (ER) | payer MEDICAID, OTHER ==
--- NOTE | 2018-09-26 04:05 | EDPHY ---
H & P Source: Patient - Medical/Surgical History Hx Asthma: No Hx Chronic Respiratory Disease: No Hx Diabetes: No Hx Cardiac Disease: No Hx Renal Disease: No Hx Cirrhosis: No Hx Alcoholism: No Hx HIV/AIDS: No Hx Splenectomy or Spleen Trauma: No Other PMH: Kidney Infections, cyst removed from cheek. - Social History Smoking Status: Never smoked Time Seen by Provider: 09/26/18 04:05 HPI/ROS: HPI CHIEF COMPLAINT: Depressed HISTORY OF PRESENT ILLNESS: Patient is a 23-year-old female, presents to the emergency room by private vehicle with her aunt for feeling depressed and suicidal. She denies any specific plan to me, however she states she has been feeling very depressed. She went out with friends tonight had multiple shots of liquor. States she felt more depressed and somewhat suicidal. This prompted her to come to the emergency room. She is voluntary and would like to speak with mental health. Aunt is at bedside. Past Medical History: History of depression but not on any medication Past Surgical History: No recent surgery Social History: Denies drugs, tobacco. Did have a few shots of liquor tonight. Family History: Noncontributory ROS REVIEW OF SYSTEMS: 10 Systems were reviewed and negative with the exception of the elements mentioned in the history of present illness. Exam Constitutional triage nursing summary reviewed, vital signs reviewed, awake/ alert. Eyes normal conjunctivae and sclera, EOMI, PERRLA. HENT normal inspection, atraumatic, moist mucus membranes, no epistaxis, neck supple/ no meningismus, no raccoon eyes. Respiratory clear to auscultation bilaterally, normal breath sounds, no respiratory distress, no wheezing. Cardiovascular rate normal, regular rhythm, no murmur, no edema, distal pulses normal. Gastrointestinal soft, non-tender, no rebound, no guarding, normal bowel sounds, no distension, no pulsatile mass. Genitourinary no CVA tenderness. Musculoskeletal no midline vertebral tenderness, full range of motion, no calf swelling, no tenderness of extremities, no meningismus, good pulses, neurovascularly intact. Skin pink, warm, & dry, no rash, skin atraumatic. Neurologic awake, alert and oriented x 3, AAOx3, moves all 4 extremities equally, motor intact, sensory intact, CN II-XII intact, normal cerebellar, normal vision, normal speech. Psychiatric tearful, flat affect. Heme/Lymph/Immune no lymphadenopathy. Differential Diagnosis: Includes but is not limited to in and in no particular order: Underlying depression, mood disorder, alcohol intoxication, suicidal ideation Medical Decision Making: Plan for this patient blood draw for medical clearance , check alcohol level, will patient be with mental health this morning. Re-evaluation: 7:[address] Ho. Medically cleared. Patient pending mental health evaluation this morning. (Reji Arnold) Constitutional: Initial Vital Signs Temperature (C) 37.1 C 09/26/18 04:04 Heart Rate 105 H 09/26/18 04:04 Respiratory Rate 16 09/26/18 04:04 Blood Pressure 114/88 H 09/26/18 04:04 O2 Sat (%) 97 09/26/18 04:04 O2 Delivery Mode Room Air Allergies/Adverse Reactions: No Known Allergies Allergy (Verified 09/26/18 04:06) Home Medications: Medication Instructions Recorded NK [No Known Home Meds] 01/19/18 Medical Decision Making Other Provider: I assumed care of the patient at 0700 am pending psychiatric evaluation. (Gerhard Ho) - Data Points Laboratory Results: Laboratory Results 09/26/18 04:31 09/26/18 04:31 09/26/18 09/26/18 09/26/18 04:31 04:31 04:31 WBC 5.42 10^3/uL 10^3/uL (3.80-9.50) RBC 5.46 10^6/uL H 10^6/uL (4.18-5.33) Hgb 16.2 g/dL g/dL (12.6-16.3) Hct 47.6 % H % (38.0-47.0) MCV 87.2 fL fL (81.5-99.8) MCH 29.7 pg pg (27.9-34.1) MCHC 34.0 g/dL g/dL (32.4-36.7) RDW 12.7 % % (11.5-15.2) Plt Count 326 10^3/uL 10^3/uL (150-400) MPV 8.8 fL fL (8.7-11.7) Neut % (Auto) 59.3 % % (39.3-74.2) Lymph % (Auto) 33.6 % % (15.0-45.0) Gilchrist % (Auto) 5.9 % % (4.5-13.0) Eos % (Auto) 0.4 % L % (0.6-7.6) Baso % (Auto) 0.6 % % (0.3-1.7) Nucleat RBC Rel Count 0.0 % % (0.0-0.2) Absolute Neuts (auto) 3.22 10^3/uL 10^3/uL (1.70-6.50) Absolute Lymphs (auto) 1.82 10^3/uL 10^3/uL (1.00-3.00) Absolute Monos (auto) 0.32 10^3/uL 10^3/uL (0.30-0.80) Absolute Eos (auto) 0.02 10^3/uL L 10^3/uL (0.03-0.40) Absolute Basos (auto) 0.03 10^3/uL 10^3/uL (0.02-0.10) Absolute Nucleated RBC 0.00 10^3/uL 10^3/uL (0-0.01) Immature Gran % 0.2 % % (0.0-1.1) Immature Gran # 0.01 10^3/uL 10^3/uL (0.00-0.10) Sodium 144 mEq/L mEq/L (135-145) Potassium 4.0 mEq/L mEq/L (3.5-5.2) Chloride 108 mEq/L mEq/L (97-110) Carbon Dioxide 23 mEq/l mEq/l (22-31) Anion Gap 13 mEq/L mEq/L (6-14) BUN 9 mg/dL mg/dL (7-23) Creatinine 0.7 mg/dL mg/dL (0.6-1.0) Estimated GFR > 60 Glucose 106 mg/dL H mg/dL (70-100) Calcium 9.4 mg/dL mg/dL (8.5-10.4) Beta HCG, Qual NEGATIVE Salicylates < 1.0 mg/dL L mg/dL (2.0-20.0) Urine Opiates Screen Acetaminophen < 10 mcg/mL L mcg/mL (10-30) Urine Barbiturates Ur Phencyclidine Scrn Ur Amphetamine Screen U Benzodiazepines Scrn Urine Cocaine Screen U Marijuana (THC) Screen Ethyl Alcohol 139 mg/dL H mg/dL (0-10) 09/26/18 04:20 WBC RBC Hgb Hct MCV MCH MCHC RDW Plt Count MPV Neut % (Auto) Lymph % (Auto) Gilchrist % (Auto) Eos % (Auto) Baso % (Auto) Nucleat RBC Rel Count Absolute Neuts (auto) Absolute Lymphs (auto) Absolute Monos (auto) Absolute Eos (auto) Absolute Basos (auto) Absolute Nucleated RBC Immature Gran % Immature Gran # Sodium Potassium Chloride Carbon Dioxide Anion Gap BUN Creatinine Estimated GFR Glucose Calcium Beta HCG, Qual Salicylates Urine Opiates Screen NEGATIVE (NEGATIVE) Acetaminophen Urine Barbiturates NEGATIVE (NEGATIVE) Ur Phencyclidine Scrn NEGATIVE (NEGATIVE) Ur Amphetamine Screen NEGATIVE (NEGATIVE) U Benzodiazepines Scrn NEGATIVE (NEGATIVE) Urine Cocaine Screen NEGATIVE (NEGATIVE) U Marijuana (THC) Screen NEGATIVE (NEGATIVE) Ethyl Alcohol Departure - Departure Clinical Impression: Depression Condition: Good Referrals: Shlomo Gasca MD [Primary Care Provider] - As per Instructions
[2018-09-26 04:42] LABS: PLATELET COUNT 326 10^3/uL (150-400)
[2018-09-26 08:40] VITALS: BP 109/73
--- NOTE | 2018-09-26 09:06 | ASMTTCLDSP ---
TLC Discharge Disposition Disposition: Answers: Discharge If Answers: Yes DISCHARGED: Patient/family given suicide hotline info & [employer] brochure? Disposition Notes: Notes: * Pt counseled re the potential for alcohol consumption to increase depression * Pt re the potential for a concussion to contribute to the increase of depression and anxiety and need to follow up with [facility] * Given the crisis line and address for MHP's, [facility] * Given resources for counseling through both the [facility] and [facility]* Given information on anti-depressants currently available. * Encouraged to seek information re anti-depressants through [facility] * Encouraged to return to the ER if symptoms continue or worsen Discharge Concerns/Recommendations: Notes: In consultation with [facility] ED physician,Dr Ho it was concurred that Pt does not appear to meet 27-65 criteria requiring psychiatric hospitalization as Pt does not appear to be an imminent risk of harm to self due to a mental illness condition. Date Signed: 09/26/2018 09:05 AM Electronically Signed By:Magui Hardy
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
== END 2018-09-26 08:52 | disposition home or self-care (01) ==
DX: F32.9 Major depressive disorder, single episode, unspecified (principal); R45.851 Suicidal ideations
CPT/HCPCS: 80305; G0480

== ENCOUNTER 2018-11-21 05:52 | Inpatient (IN) | payer SELFPAY ==
--- NOTE | 2018-11-21 06:10 | EDPHY ---
H & P Stated Complaint: SI Source: Patient - Personal History LMP (Females 10-55): 15-21 Days Ago Current Tetanus Diphtheria and Acellular Pertussis (TDAP): Yes - Medical/Surgical History Hx Asthma: No Hx Chronic Respiratory Disease: No Hx Diabetes: No Hx Cardiac Disease: No Hx Renal Disease: No Hx Cirrhosis: No Hx Alcoholism: No Hx HIV/AIDS: No Hx Splenectomy or Spleen Trauma: No Other PMH: Kidney Infections, cyst removed from cheek. - Social History Smoking Status: Never smoked Time Seen by Provider: 11/21/18 06:10 HPI/ROS: HPI CHIEF COMPLAINT: Suicidal thoughts. HISTORY OF PRESENT ILLNESS: Patient is a 23-year-old female, she has a history of depression, not on any medications, presents to the emergency room stating that she is suicidal. Patient states 2 days ago she had thoughts of hanging herself she tied a rope around her neck [place] did not hang. She states last night she had for the thoughts of wanting to hang herself. Denies any other complaints. Denies co ingestions or pill ingestions. Did have alcohol to drink last night. Past Medical History: History of depression Past Surgical History: Denies significant surgical history Social History: Drinks alcohol. No drugs or tobacco. Family History: Noncontributory ROS REVIEW OF SYSTEMS: 10 Systems were reviewed and negative with the exception of the elements mentioned in the history of present illness. Exam Constitutional triage nursing summary reviewed, vital signs reviewed, awake/ alert. Eyes normal conjunctivae and sclera, EOMI, PERRLA. HENT no ligature diaz on the neck, normal inspection, atraumatic, moist mucus membranes, no epistaxis, neck supple/ no meningismus, no raccoon eyes. Respiratory clear to auscultation bilaterally, normal breath sounds, no respiratory distress, no wheezing. Cardiovascular rate normal, regular rhythm, no murmur, no edema, distal pulses normal. Gastrointestinal soft, non-tender, no rebound, no guarding, normal bowel sounds, no distension, no pulsatile mass. Genitourinary no CVA tenderness. Musculoskeletal no midline vertebral tenderness, full range of motion, no calf swelling, no tenderness of extremities, no meningismus, good pulses, neurovascularly intact. Skin pink, warm, & dry, no rash, skin atraumatic. Neurologic awake, alert and oriented x 3, AAOx3, moves all 4 extremities equally, motor intact, sensory intact, CN II-XII intact, normal cerebellar, normal vision, normal speech. Psychiatric flat affect, depressed. Heme/Lymph/Immune no lymphadenopathy. Differential Diagnosis: Includes but is not limited to in a particular order underlying depression, suicidal ideation, mood disorder, bipolar disorder Medical Decision Making: Plan for this patient IV establishment blood draw for medical clearance, basic labs, drug screen, alcohol level patient need to be placed on M1 hold and the mental health evaluation. Re-evaluation: M1 hold placed at 6:57 a.[address].. S[address] over to Dr. Her. (Reji Arnold) 0700: Patient care assumed from Dr. Arnold at shift change pending placement. 1035: I spoke with the mental health clinical quality assurance associate who reports that the patient has been accepted to [facility] by Dr. Mathur. JORGE LUISALA signed. (Panchito Her) Constitutional: Initial Vital Signs Temperature (C) 37.1 C 11/21/18 05:59 Heart Rate 102 H 11/21/18 05:59 Respiratory Rate 16 11/21/18 05:59 Blood Pressure 131/83 H 11/21/18 05:59 O2 Sat (%) 97 11/21/18 05:59 O2 Delivery Mode Room Air Allergies/Adverse Reactions: No Known Allergies Allergy (Verified 09/26/18 04:06) Home Medications: Medication Instructions Recorded NK [No Known Home Meds] 01/19/18 - Data Points Laboratory Results: Laboratory Results 11/21/18 06:36 11/21/18 06:36 11/21/18 11/21/18 11/21/18 06:36 06:36 06:36 WBC 5.80 10^3/uL 10^3/uL (3.80-9.50) RBC 4.95 10^6/uL 10^6/uL (4.18-5.33) Hgb 15.0 g/dL g/dL (12.6-16.3) Hct 43.4 % % (38.0-47.0) MCV 87.7 fL fL (81.5-99.8) MCH 30.3 pg pg (27.9-34.1) MCHC 34.6 g/dL g/dL (32.4-36.7) RDW 12.7 % % (11.5-15.2) Plt Count 316 10^3/uL 10^3/uL (150-400) MPV 8.6 fL L fL (8.7-11.7) Neut % (Auto) 54.3 % % (39.3-74.2) Lymph % (Auto) 37.1 % % (15.0-45.0) [place] % (Auto) 7.4 % % (4.5-13.0) Eos % (Auto) 0.5 % L % (0.6-7.6) Baso % (Auto) 0.5 % % (0.3-1.7) Nucleat RBC Rel Count 0.0 % % (0.0-0.2) Absolute Neuts (auto) 3.15 10^3/uL 10^3/uL (1.70-6.50) Absolute Lymphs (auto) 2.15 10^3/uL 10^3/uL (1.00-3.00) Absolute Monos (auto) 0.43 10^3/uL 10^3/uL (0.30-0.80) Absolute Eos (auto) 0.03 10^3/uL 10^3/uL (0.03-0.40) Absolute Basos (auto) 0.03 10^3/uL 10^3/uL (0.02-0.10) Absolute Nucleated RBC 0.00 10^3/uL 10^3/uL (0-0.01) Immature Gran % 0.2 % % (0.0-1.1) Immature Gran # 0.01 10^3/uL 10^3/uL (0.00-0.10) Sodium 146 mEq/L H mEq/L (135-145) Potassium 3.9 mEq/L mEq/L (3.5-5.2) Chloride 109 mEq/L mEq/L (97-110) Carbon Dioxide 21 mEq/l L mEq/l (22-31) Anion Gap 16 mEq/L H mEq/L (6-14) BUN 11 mg/dL mg/dL (7-23) Creatinine 0.8 mg/dL mg/dL (0.6-1.0) Estimated GFR > 60 Glucose 104 mg/dL H mg/dL (70-100) Calcium 9.2 mg/dL mg/dL (8.5-10.4) Beta HCG, Qual NEGATIVE Salicylates < 1.0 mg/dL L mg/dL (2.0-20.0) Urine Opiates Screen Acetaminophen < 10 mcg/mL L mcg/mL (10-30) Urine Barbiturates Ur Phencyclidine Scrn Ur Amphetamine Screen U Benzodiazepines Scrn Urine Cocaine Screen U Marijuana (THC) Screen Ethyl Alcohol 133 mg/dL H mg/dL (0-10) 11/21/18 06:15 WBC RBC Hgb Hct MCV MCH MCHC RDW Plt Count MPV Neut % (Auto) Lymph % (Auto) [place] % (Auto) Eos % (Auto) Baso % (Auto) Nucleat RBC Rel Count Absolute Neuts (auto) Absolute Lymphs (auto) Absolute Monos (auto) Absolute Eos (auto) Absolute Basos (auto) Absolute Nucleated RBC Immature Gran % Immature Gran # Sodium Potassium Chloride Carbon Dioxide Anion Gap BUN Creatinine Estimated GFR Glucose Calcium Beta HCG, Qual Salicylates Urine Opiates Screen NEGATIVE (NEGATIVE) Acetaminophen Urine Barbiturates NEGATIVE (NEGATIVE) Ur Phencyclidine Scrn NEGATIVE (NEGATIVE) Ur Amphetamine Screen NEGATIVE (NEGATIVE) U Benzodiazepines Scrn NEGATIVE (NEGATIVE) Urine Cocaine Screen NEGATIVE (NEGATIVE) U Marijuana (THC) Screen NEGATIVE (NEGATIVE) Ethyl Alcohol Departure - Departure Disposition: [facility] IP Clinical Impression: Suicidal ideation Condition: Fair Referrals: Shlomo Gasca MD [Primary Care Provider] - As per Instructions
[2018-11-21 06:46] LABS: PLATELET COUNT 316 10^3/uL (150-400)
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
--- NOTE | 2018-11-21 10:43 | ASMTTCLDSP ---
TLC Discharge Disposition Disposition: Answers: Admit Discharge Concerns/Recommendations: Notes: In consultation with [facility] ED physician,Dr March and on-call psychiatrist,Dr Mathur , both concurred that Pt does appear to meet 27-65 criteria requiring psychiatric hospitalization as Pt does appear to be an imminent risk of harm to self due to a mental illness condition. Pt was read the Patient Rights and Responsibilities Statement on 11/21/2018 at 10:30,she signed it; original placed in chart and copy given to pt. Was patient given the Answers: Yes Inpatient Behavioral Health Prohibited Belongings List while in the ED? For inpatient Dr Mathur admission, the following psychiatrist agreed to accept patient for admission to Behavioral [facility] ([facility]): Type of Hold: Answers: M1/72-hour Hold Hold initiated by: Answers: ED Physician Date Signed: 11/21/2018 10:43 AM Electronically Signed By:Magui Hardy
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
[2018-11-21] MEDS ORDERED: ACETAMINOPHEN 325 MG TAB PO PRN (17:41)
[2018-11-21] MEDS ORDERED: OLANZapine DISINTEGR 5 MG TAB PO PRN (17:41)
[2018-11-21] MEDS ORDERED: LORazepam 0.5 MG TAB PO PRN (17:41)
[2018-11-21] MEDS ORDERED: NICOTINE POLACRILEX 2 MG GUM B PRN (17:41)
[2018-11-21] MEDS ORDERED: MAGNESIUM HYDROXIDE 30 ML UDCUP PO PRN (17:41)
[2018-11-21] MEDS ORDERED: MAG HYDROX/AL HYDROX/SIMETH 30 ML UDCUP PO PRN (17:41)
[2018-11-21] MEDS ORDERED: MELATONIN 3 MG TAB PO PRN (17:43)
[2018-11-21] MEDS ORDERED: diphenhydrAMINE 25 MG CAP PO PRN (21:46)
[2018-11-21] MEDS ORDERED: diphenhydrAMINE 25 MG CAP PO ONE (22:00)
--- NOTE | 2018-11-21 23:36 | SOAPPROG ---
SOAP Progress Note Assessment/Plan: Assessment: 23yo with SI admission orders entered. suicide precautions. bright affect with family recently visiting noted with itching, reports "skin sensitivities" offered Benadryl prn for itching, sleep. Objective: Vital Signs Temp Pulse Resp BP Pulse Ox 36.9 C 101 H 16 131/82 H 96 11/21/18 21:23 11/21/18 21:23 11/21/18 21:23 11/21/18 21:23 11/21/18 21:23 ICD10 Worksheet Patient Problems: Problems Problem Status Onset Suicidal ideation Acute Acute pharyngitis Acute Head injury Acute Influenza A Acute Post concussive syndrome Acute Pyelonephritis Acute Sinus tachycardia seen on hall monitor Acute Urinary tract infection Acute Volume depletion Acute
[2018-11-22] MEDS: SERTRALINE HCL 50 MG TAB PO SCH (09:34)
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
--- NOTE | 2018-11-22 10:50 | PDMN ---
Medical Necessity Medical necessity: Pt meets inpt criteria per MD order [place] [facility] [id number], Major Depressive Disorder, Adult: Inpatient Care, 3 days. 23 y/o presenting w/ problems of increased depression accompanied by suicidal ideation admitted, on M1 hold due to risk of harm to self, w/major depressive disorder, severe, w/ anxious distress, PTSD, and alcohol use disorder, binge drinking, pt meets criteria for psychiatric inpt hospitalization for safety, crisis stabilization, and medication evaluation.
--- NOTE | 2018-11-22 11:54 | PDCONSULT ---
Slitting Machine Operator Helper Note: Patient is a 23-year-old female with past medical history of depression who was admitted to [facility] for concerns of suicidal ideation. Apparently patient had plans of going up to the mountains to hang herself but did not follow through with these plans. The night of admission she was again having thoughts of hanging herself and so presented the emergency room. Currently she feels fine denies any physical complaints. Past medical history None Past surgical history None Social history Drinks alcohol but denied drug or tobacco use Family history She denies any family history of any illnesses Meds On no medications Allergies No known drug allergies Review of systems Ten point review systems negative except as per HPI Examination Vitals; Blood pressure 131/83 respirations 16 heart rate 92 saturating 97% on room air with a temperature 37.1 degrees C [id number] female in no acute distress HEENT PERRLA mucous membranes moist pink and acyanotic head is atraumatic normocephalic extraocular muscles intact Lungs are clear to auscultation bilaterally Cardiac with regular rhythm and rate no murmurs rubs or gallops no costovertebral angle tenderness Abdomen is soft with bowel sounds present nontender nondistended in all 4 quadrants with no organomegaly Extremities with no clubbing cyanosis edema or calf pain Skin with no regions rashes or ecchymosis Neuro cranial nerves 2-12 are grossly intact with no focal neurologic deficits Lymph no lymphadenopathy Assessment suicidal ideation Hypernatremia alcohol intoxication Hyperglycemia Plan Management of suicidal ideation per Psychiatry Recheck Serum sodium in the morning counseled on alcohol risks Check A1c
--- NOTE | 2018-11-23 08:17 | SOAPPROG ---
SOAP Progress Note Assessment/Plan: Assessment: Major Depressive Disorder, Severe, with anxious distress. Improvement noted. ( see subjective/objective note). Patient could benefit from continued inpatient hospitalization for crisis stabilization, safety, medication evaluation, and to establish safe discharge plan including follow-up appointments. Consider discharge tomorrow. Plan: 1. Psychotropic medications: After reviewing options, risks, and benefits patient agrees to continue current medications. No medication changes at this time as more time is needed to determine ongoing tolerability and efficacy. Plan is to continue to observe patient for response and side effects from medications, and ongoing monitoring and evaluation. 2. Review with patient informed consent and recommendations for psychotropic medication treatment listed below 3. Labs: no additional at this time 4. Therapy: continue milieu and group therapy 5. Further investigation including gathering information from patients relatives and review of past case records to inform treatment plan. 6. Safety/Wellness plan and follow-up outpatient appointments to be established prior to discharge. Next steps are for patient to meet with critical care nurse specialist to plan a safe discharge plan and establish outpatient services for ongoing treatment. 7. Confer with inpatient treatment team regarding treatment plan. 8. Psychosocial stressors addressed through disability case manager. 9. Legal status: M1 10. Consider discharge this week if patient is in stable condition, safe, and has a safe discharge plan. PSYCHOTROPIC MEDICATION TREATMENT INFORMED CONSENT and RECOMMENDATIONS: Review nature of condition, diagnosis, and prognosis. Review nature and purpose of psychotropic medication treatment. Review type of psychotropic medications being ordered. Review risk and benefits of psychotropic medication treatment. Review probable length of time patient will need to take medications. Review risk and benefits of not undergoing psychotropic medication treatment. Review alternative treatments to psychotropic medications. Review psychotropic medications contraindications, drug-drug interactions, side effects, and importance of reporting any side effects to a psychiatric provider or nurse during inpatient hospitalization, and upon discharge to patients psychiatric outpatient provider, primary care provider, or other health career placement services counselor. Review importance of asking a nurse, psychiatric provider, or primary care provider any questions or problems concerning the psychotropic medications. Verify patient understands the information that has been provided, and understands, accepts, and agrees to psychotropic medications. Review patients safety plan and importance of patient to report to staff while hospitalized if patient is ever a danger to self/others, or unable to care for self, and upon discharge, the importance for patient to contact [facility] or [facility], or go to the nearest emergency room, if patient is ever a danger to self/others, or unable to care for self. Recommend that upon discharge patient establish medication management treatment with a psychiatric provider, establishes routine therapy appointments, and follow-up with primary care provider. Verify patient understands and agrees to these recommendations. 11/23/18 08:16 Subjective: Following up with patient for evaluation of mood and safety. Patient reports, "Doing a lot better. When am I discharging? I have a therapy appointment tomorrow I plan to go to." Patient reports no side effects from current medications, and agrees to continue current medications. Objective: Vital Signs Temp Pulse Resp BP Pulse Ox 36.7 C 104 H 14 112/70 95 11/23/18 00:00 11/23/18 00:00 11/23/18 00:00 11/23/18 00:00 11/23/18 00:00 MSE: The patient is a well-nourished female looking stated chronological age. Attire is appropriate dress is casual. Grooming status is appropriate. Ambulation is independent. Gait is normal and coordinated. Posture is normal. Eye contact is appropriate. Motor activity is appropriate with purposeful, organized, coordinated movements; with no involuntary movements. Attitude is cooperative. Patient appears attentive and relates well to this interviewer. Language production is spontaneous. R/R/V normal. Articulation is clear. Patient reports mood as okay with congruent affect. Patients thought process is linear and logical with no signs of thought disorder. Patient does not report suicidal/homicidal thoughts, ideas, or plans. Patient denies auditory, visual hallucinations. Patient denies delusions. Patient does not appear to be attending to internal stimuli. Patients attention and concentration are fair. Patient is oriented to person, place, time. Patients insight is poor. Patients judgment is poor. - Time Spent With Patient Time Spent With Patient: 15 minutes, met with patient individually. - Pending Discharge Pending Discharge Within 24 Hours: No Pending Discharge Within 48 Hours: No ICD10 Worksheet Patient Problems: Problems Problem Status Onset Suicidal ideation Acute Acute pharyngitis Acute Head injury Acute Influenza A Acute Post concussive syndrome Acute Pyelonephritis Acute Sinus tachycardia seen on library monitor Acute Urinary tract infection Acute Volume depletion Acute
[2018-11-23] MEDS: SERTRALINE HCL 50 MG TAB PO SCH (08:32)
--- NOTE | 2018-11-23 14:38 | ASMTCMCOM ---
CM Note CM Note Notes: Pt has an appt with her therapist Kristi Justice, November 24 at 12:45. CC waiting to hear back from [facility] re an appt with a medication provider. Date Signed: 11/23/2018 02:37 PM Electronically Signed By:Magui Hardy
--- NOTE | 2018-11-24 06:40 | BDS ---
[f rep st] BEHAVIORAL HEALTH DISCHARGE SUMMARY REASON FOR ADMISSION: From the ED note dated 11/21/2018, the patient presented to the emergency department with history of depression, not on any medications, and presented to the emergency room stating that she was suicidal. The patient had a plan to hang herself. The patient reportedly did tie a rope around her neck and [place], but did not attempt. The patient was admitted involuntarily and on an M1 hold due to being a danger to herself. The patient was admitted for safety, crisis stabilization, and medication management. ADMITTING DIAGNOSES: 1. Major depressive disorder, severe, with anxious distress. 2. Alcohol use, binge drinking. ADMISSION PHYSICAL EXAM: The patient was seen on 11/22/2018, for history and physical consult for medical clearance for inpatient psychiatric hospitalization and treatment. The patient was medically cleared for inpatient psychiatric hospitalization and treatment. For further details, please refer to the hearing aid consultant's note document dated 11/22/2018. ADMISSION LABS: 1. CBC within normal limits, except MPV was low at 8.6, and eosinophils were low at 0.5. 2. BMP within normal limits, except sodium was elevated at 146, carbon dioxide was low at 21, anion gap was elevated at 16, and glucose was elevated at 104. 3. Hemoglobin A1c within normal limits at 5.4. 4. Lipid panel within normal limits. 5. TSH within normal limits at 2.110. 6. Beta hCG qualitative test negative. 7. Toxicology screen was negative for all the substances that were screened. Ethyl alcohol level was 133 on 11/21/2018, at time of presenting to the emergency room. MAJOR PROCEDURES OR TESTS: None. HOSPITAL COURSE: The most prominent symptoms and behaviors while the patient was here were reports of moderate anxiety and depression. Treatment modalities utilized were milieu and group therapy. Zoloft 50 mg p.o. daily was started to target mood symptoms, and was tolerated with no report of side effects. Patient has improved considerably with no signs of psychiatric symptoms and no psychiatric symptoms expressed. Patient reports she has improved since admission, states to be in stable condition, feels safe to discharge, and she contracts for safety. Patients response to treatment was good. There were no adverse or unexpected results of treatment. The patient was safe throughout stay, active in treatment, engaged in groups, and was appropriate with staff. Patient met with treatment team prior to discharge to assess readiness to discharge and review discharge plan. The treatment team consensus is the patient in stable condition, has a safe discharge plan, and is ready to discharge today. CONDITION AT DISCHARGE: Patient is in stable condition and is no longer a danger to self or others, and is not gravely disabled due to mental illness. Patient is no longer in need of inpatient level of care, and can be safely and effectively treated within the community. The patients level of risk at time of discharge is low. MSE: The patient is casually dressed and with good hygiene , and looks stated age. Patient is sitting, posture is upright, and position is relaxed. Patient appears awake, alert, and responds appropriately and reasonably during interview. Patient is engaged, relates well to interviewer, and emotional facial expression is appropriate to situation and changes appropriately with topic. Patient is cooperative, makes comfortable eye contact , and movements are voluntary, deliberate, coordinated, and smooth and even with no inappropriate movements. Patient makes laryngeal sounds effortlessly and shares conversation appropriately; pace of conversation is appropriate, and stream of talking is fluent; articulation is clear and understandable; word choice is effortless and appropriate for education level; completes sentences, occasionally pausing to think; rate and volume are appropriate for interview and setting. Patient reports mood as euthymic. Patients affect is stable with full variable range, congruent with mood, and appropriate to speech and circumstances. Patient has linear and logical thinking, with no loose associations, tangential thought, thought blocking, concrete thinking, or any other signs of formal thought disorder. Patient denies suicidal and homicidal ideation, and denies hallucinations and delusions. Patient appears to be a reliable historian with sound judgement and good insight into current condition. Patient has no apparent dysfunction in recent or remote memory noted , and no evidence of gross cognitive dysfunction noted at any point during the interview. DISCHARGE DIAGNOSES: 1. Major depressive disorder, severe, with anxious distress. 2. Alcohol use, binge drinking. CURRENT MEDICATIONS: After reviewing options, risks, and benefits with the patient, the patient agrees to continue: Zoloft 50 mg p.o. daily. The patient requests a prescription for Zoloft at time of discharge. A prescription for 30 days is provided. The prescription is reviewed with the patient at time of discharge to ensure accuracy and patient understanding. DISPOSITION: The patient left hospital independently and voluntarily with her mother, and plans to go to directly to her therapy appointment this morning. FOLLOWUP: rehabilitation coordinator reports the appropriate outpatient follow-up services have been established and outpatient appointments have been scheduled. The patient received written instructions with times and dates of outpatient follow-up appointments. The following follow-up recommendations were provided to the patient at discharge: Continue psychotropic medications as prescribed and attend appointments as scheduled. Report any side effects to a psychiatric outpatient provider, a primary care provider, or other health career and guidance counselor. Address any questions or problems concerning the psychotropic medications with a psychiatric outpatient provider, a primary care provider, or other health career and guidance counselor. Contact [facility] or [facility], or go to the nearest emergency room, if you are ever a danger to yourself/others, or unable to care for yourself. As soon as possible, establish a routine medication management treatment with a psychiatric provider, establish routine therapy appointments, and follow-up with a primary care provider. SUBSTANCE ABUSE BRIEF INTERVENTION: Brief intervention regarding the risks of alcohol abuse is provided to patient with goal to reduce the risk of harm that could result from the continued use of alcohol, with the general aim to investigate the problem, raise awareness of problem, develop a solution with the patient, recommend a specific change or activity, and motivate the patient toward change. Assess substance abuse behavior and give supportive advice about harm reduction, recommend a reduction in hazardous/at-risk consumption patterns, and facilitate referrals for additional specialized treatment with child care associate. Intermediate goal is for the patient to quit and attend outpatient substance abuse treatment. Intervention focus on intermediate goals to allow for more immediate success in the treatment process to keep the patient motivated. Review following with patient: Alcohol/Binge Drinking risks : short-term: injuries, violence, alcohol poisoning, risky sexual behaviors. Long-term: high blood pressure, stroke, liver disease, digestive problems, cancer, learning and memory problems, depression and anxiety, social problems, and alcohol dependence. OUTPATIENT SUBSTANCE ABUSE TREATMENT: Patient referred to outpatient provider and treatment for continued treatment related to substance abuse. LEGAL COURSE: The patient was admitted on an M1 hold for involuntary inpatient psychiatric hospitalization. The patient discharged today independently and voluntarily. ATTITUDE AT TIME OF DISCHARGE: The patients attitude was positive at time of discharge, and patient reports looking forward to discharging today. The patient reports she feels safe to discharge, is no longer a danger to herself or others, is in stable condition, and contracts for safety. Patient states she will continue medications as prescribed, and establish medication management treatment with an outpatient provider after discharge. Patient reports she understands the information that has been provided to her, and she understands, accepts, and agrees to psychotropic medications. Patient describes internal protective factors as the coping skills she has learned while hospitalized here, and she plans to continue to practice these coping skills after discharge. LABS AND STUDIES: There were no pending labs or studies at time of discharge. ADVANCE DIRECTIVES: There were no advance directives on file, and the patient was full code during this hospitalization. The following psychotropic medication treatment informed consent and recommendations were provided to the patient at time of discharge. Patient reports she understands, accepts, and agrees to the information that has been provided. PSYCHOTROPIC MEDICATION TREATMENT INFORMED CONSENT and RECOMMENDATIONS: Review nature of condition, diagnosis, and prognosis. Review nature and purpose of psychotropic medication treatment. Review type of psychotropic medications being prescribed. Review risk and benefits of psychotropic medication treatment. Review probable length of time will need to take medications. Review risk and benefits of not undergoing psychotropic medication treatment. Review alternative treatments to psychotropic medications. Review psychotropic medications contraindications, side effects, and importance of reporting any side effects to a psychiatric provider, primary care provider, or other health career and guidance counselor. Review importance of her asking a psychiatric provider or primary care provider any questions or problems concerning the psychotropic medications. Review importance of reporting to a psychiatric provider, primary care provider, or other health career and guidance counselor if she plans to or becomes . Review safety plan and the importance to contact [facility] or [facility] , or go to the nearest emergency room, if ever a danger to yourself/others, or unable to care for yourself. Recommend upon discharge to establish routine medication management treatment with a psychiatric provider, establish routine therapy appointments, and follow-up with a primary care provider. Verify patient understands, accepts, and agrees to the information that has been provided. /[id number]
[2018-11-24 06:59] VITALS: BP 122/66
[2018-11-24] MEDS: SERTRALINE HCL 50 MG TAB PO SCH (08:05)
== END 2018-11-24 09:00 | disposition home or self-care (01) | DRG 885 ==
LOC: BBEH 12:55
PROVIDERS: ADMIT Psychiatry & Neurology Behavioral Neurology & Neuropsychiatry; ATTEND Psychiatry & Neurology Behavioral Neurology & Neuropsychiatry
DX: F33.3 Major depressive disorder, recurrent, severe with psychotic symptoms (principal); E87.0 Hyperosmolality and hypernatremia; F10.929 Alcohol use, unspecified with intoxication, unspecified; Y90.6 Blood alcohol level of 120-199 mg/100 ml
CPT/HCPCS: 80305; G0480